=== PATIENT | male | born 1945 | race Caucasian/White ===

== ENCOUNTER 2020-07-24 23:42 | Inpatient (IN) | payer OTHER, MEDICARE, SELFPAY ==
[2020-07-24 23:46] VITALS: BP 104/49; PULSE 110; RESP 22; TEMP 40; O2SAT 93; BMI 29.9
[2020-07-25] VITALS (11 sets, daily range): BP systolic 96–143; BP diastolic 47–75; PULSE 92–110; RESP 12–20; TEMP 36.4–39.4; O2SAT 89–98; BMI 30.4
--- NOTE | 2020-07-25 | XR_ITS ---
EXAMINATION: XR CHEST CLINICAL INFORMATION: Question pneumonia COMPARISON: None TECHNIQUE: Frontal view of the chest was obtained. FINDINGS: There are no films to compare. Low lung volumes on the right. Opacity in the right upper lung may be chronic but an infiltrate or loculated effusion cannot be excluded. The left lung is grossly clear. There is no obvious failure here. XR/XR chest 1V IMPRESSION: No films to compare. Low lung volume on the right may be chronic. Opacity in the right upper lung may be chronic but may represent an infiltrate and/or loculated fluid. Also possible old rib injury here or surgical change. Consider CT to fully characterize
--- NOTE | 2020-07-25 00:15 | ED_ITS ---
HPI - Fever General Chief Complaint: Fever Stated Complaint: fever/sob Time Seen by Provider: 07/25/20 00:14 History of Present Illness HPI Narrative: Patient from the halfway with a chief complaint of coughing upper respiratory symptoms along with a high fever 104. FDC r eported patient has a right upper lobe infiltrate. Patient unable to give detailed history. MD elicited complaint: fever Related Data Home Medications Medication Instructions Recorded Confirmed Advair Diskus 50 mcg INHALATION BID 07/25/20 07/25/20 Depakote Sprinkles 125 mg PO BID 07/25/20 07/25/20 Allergies Allergy/AdvReac Type Severity Reaction Status Date / Time No Known Allergies Allergy Verified 07/25/20 00:31 Review of Systems Review of Systems: Unable to obtain review of systems secondary to patient's condition [facility] Past Medical History Source: old records reviewed Medical History Alzheimer disease Aspiration pneumonia COPD (chronic obstructive pulmonary disease) Depression Diabetes 1.5, managed as type 2 Hyperlipidemia Hypothyroid Macular degeneration Neoplasm Obstructive apnea Pneumonitis Prostate CA PTSD (post-traumatic stress disorder) Social History Social History Advance Directives: No Advance Directives Information Provided: No Physical Exam Vital Signs: Vital Signs: Last Vital Signs Temp 103 F H 07/25/20 01:03 Pulse 110 H 07/25/20 01:03 Resp 12 07/25/20 01:03 BP 124/49 L 07/25/20 01:03 Pulse Ox 94 07/25/20 01:03 Body Mass Index 29.9 Appearance: Alert. . No acute distress. Eyes: Pupils equal, round and reactive to light. ENT: Pharynx normal. Neck: Normal inspection. Neck supple. No lymph nodes noted. No crepitus CVS: Normal heart rate and rhythm. Pulses normal. Normal S1 and S2 Respiratory: No respiratory distress. Breath sounds normal. No Wheezing. No rales Abdomen: Soft and nontender. No rigidity. No distention. good BS x4 Skin: Skin warm and dry. Normal skin color. Normal skin turgor. Extremities: No lower extremity edema. Neurovascular intact to all extremities. No Lacerations. No Rash Neuro: Oriented X 3. No motor deficit. No sensory deficit. Moving all extermities. No slurred speech MDM - Fever MDM Narrative Medical decision making narrative: Patient positive coughing positive fever up to 104. Chest x-ray no definitive infiltrate. Coronavirus test was negative. Cultures obtained antibiotic will be started. Currently in guarded condition awaiting admission. patient's lactate is less than 2. No evidence for severe sepsis. Given IV fluid in the emergency department. CT scan of the chest positive for right lower lobe infiltrate. Antibiotics already started. Her coronavirus test was negative. Patient to be admitted.. Lab Data Result diagrams: 07/25/20 00:20 07/25/20 00:20 Labs: Lab Results 07/25/20 07/25/20 07/25/20 Range/Units 00:19 00: 00:20 WBC 15.8 H (4.8-10.8) X10*3/uL RBC 4.70 (4.60-5.80) X10*6/uL Hgb 14.2 (14.0-18.0) g/dl Hct 43.3 (42-52) % MCV 92.1 (80-98) fL MCH 30.2 (27.0-33.0) pg MCHC 32.8 (31.0-36.0) g/dl RDW 12.2 (11.0-16.0) % Plt Count 212 (160-400) X10*3/uL MPV 10.6 (9.4-12.4) fL Immature Gran % (Auto) 0.4 (0.0-0.4) % Neut % (Auto) 85.4 H (45-73) % Lymph % (Auto) 5.1 L (20-40) % [place] % (Auto) 8.8 (2-11) % Eos % (Auto) 0.1 (0-4) % Baso % (Auto) 0.2 (0-2) % Lymph # (Auto) 0.8 L (1.2-4.9) X10*3/uL [place] # (Auto) 1.4 H (0.1-1.2) X10*3/uL Eos # (Auto) 0.0 (0.0-0.4) X10*3/uL Baso # (Auto) 0.0 (0.0-0.2) X10*3/uL Abs Immat Gran (auto) 0.06 H (0.00-0.03) X10*3/uL Absolute Neuts (auto) 13.5 H (2.0-8.3) X10*3/uL Absolute Nucleated RBC 0.000 (0.0-0.012) X10*3/uL Nucleated RBC % (auto) 0.0 (0.0-0.2) /100WBC PT (10.8-13.0) SEC INR (0.9-1.1) APTT (24.1-38.0) SEC Sodium (135-145) mmol/L Potassium (3.3-5.1) mmol/l Chloride (96-108) mmol/L Carbon Dioxide (22-29) mmol/L Anion Gap (12-20) BUN (9-16) mg/dL Creatinine (0.5-1.4) mg/dL Estim Creat Clear Calc Estimated GFR Random Glucose (60-115) mg/dL Lactic Acid 1.3 (0.5-2.0) mmol/L Calcium (8.4-10.2) mg/dL Total Bilirubin (0.0-1.0) mg/dL Coronavirus (PCR) NEGATIVE (Negative) Influenza Type A (PCR) NEGATIVE (Negative) Influenza Type B (PCR) NEGATIVE (Negative) RSV RNA Qual (PCR) NEGATIVE (Negative) 07/25/20 07/25/20 Range/Units 00:20 00:20 WBC (4.8-10.8) X10*3/uL RBC (4.60-5.80) X10*6/uL Hgb (14.0-18.0) g/dl Hct (42-52) % MCV (80-98) fL MCH (27.0-33.0) pg MCHC (31.0-36.0) g/dl RDW (11.0-16.0) % Plt Count (160-400) X10*3/uL MPV (9.4-12.4) fL Immature Gran % (Auto) (0.0-0.4) % Neut % (Auto) (45-73) % Lymph % (Auto) (20-40) % [place] % (Auto) (2-11) % Eos % (Auto) (0-4) % Baso % (Auto) (0-2) % Lymph # (Auto) (1.2-4.9) X10*3/uL [place] # (Auto) (0.1-1.2) X10*3/uL Eos # (Auto) (0.0-0.4) X10*3/uL Baso # (Auto) (0.0-0.2) X10*3/uL Abs Immat Gran (auto) (0.00-0.03) X10*3/uL Absolute Neuts (auto) (2.0-8.3) X10*3/uL Absolute Nucleated RBC (0.0-0.012) X10*3/uL Nucleated RBC % (auto) (0.0-0.2) /100WBC PT 14.7 H (10.8-13.0) SEC INR 1.2 H (0.9-1.1) APTT 39.9 H (24.1-38.0) SEC Sodium 142 (135-145) mmol/L Potassium 4.1 (3.3-5.1) mmol/l Chloride 103 (96-108) mmol/L Carbon Dioxide 27 (22-29) mmol/L Anion Gap 16 (12-20) BUN 13 (9-16) mg/dL Creatinine 1.07 (0.5-1.4) mg/dL Estim Creat Clear Calc 66.8 Estimated GFR > 60 Random Glucose 122 H (60-115) mg/dL Lactic Acid (0.5-2.0) mmol/L Calcium 8.6 (8.4-10.2) mg/dL Total Bilirubin 0.9 (0.0-1.0) mg/dL Coronavirus (PCR) (Negative) Influenza Type A (PCR) (Negative) Influenza Type B (PCR) (Negative) RSV RNA Qual (PCR) (Negative) Discharge Plan Discharge Clinical Impression: Pneumonia Patient Disposition: Home, Self-Care Prescriptions: No Action Advair Diskus 50 mcg inhalation BID RF: 0 Depakote Sprinkles 125 mg PO BID RF: 0
[2020-07-25 00:31] LABS: Basophils Percent Auto 0.2 % (0-2); Eosinophils Percent Auto 0.1 % (0-4); Hematocrit 43.3 % (42-52); Hemoglobin 14.2 g/dl (14.0-18.0); Imm Gran Abs Auto 0.06 X10*3/uL (0.00-0.03); Imm Gran Pct Auto 0.4 % (0.0-0.4); Lymphocytes Absolute Auto 0.8 X10*3/uL (1.2-4.9); Lymphocytes Percent Auto 5.1 % (20-40); MANUAL DIFF FLAG NO; Mean Corpuscular HGB Conc 32.8 g/dl (31.0-36.0); Mean Corpuscular Hemoglobin 30.2 pg (27.0-33.0); Mean Corpuscular Volume 92.1 fL (80-98); Mean Platelet Volume 10.6 fL (9.4-12.4); Monocytes Absolute Auto 1.4 X10*3/uL (0.1-1.2); Monocytes Percent Auto 8.8 % (2-11); Neutrophils Absolute Auto 13.5 X10*3/uL (2.0-8.3); Neutrophils Percent Auto 85.4 % (45-73); Platelet Count 212 X10*3/uL (160-400); Red Cell Distribution Width 12.2 % (11.0-16.0); White Blood Count 15.8 X10*3/uL (4.8-10.8)
[2020-07-25 00:47] LABS: Lactic Acid 1.3 mmol/L (0.5-2.0)
[2020-07-25 00:48] LABS: INTERNATIONAL NORM RATIO 1.2 (0.9-1.1); Prothrombin Time 14.7 SEC (10.8-13.0)
[2020-07-25 00:50] LABS: Anion Gap 16 (12-20); Bilirubin Total 0.9 mg/dL (0.0-1.0); Blood Urea Nitrogen 13 mg/dL (9-16); Calcium 8.6 mg/dL (8.4-10.2); Carbon Dioxide 27 mmol/L (22-29); Chloride 103 mmol/L (96-108); Creatinine Clr Calc Pharmacy 66.8; Estimated Glomerular Filt Rate > 60; Glucose Random 122 mg/dL (60-115); Partial Thromboplastin Time 39.9 SEC (24.1-38.0); Potassium 4.1 mmol/l (3.3-5.1); Sodium 142 mmol/L (135-145)
[2020-07-25] MEDS: cefEPime HCl 1 GM in 0.9 % Sodium Chloride 50 ML IV (00:51)
--- NOTE | 2020-07-25 01:02 | CT_ITS ---
EXAMINATION: CT CHEST WITHOUT CONTRAST CLINICAL INFORMATION: Question Covid COMPARISON: Chest x-ray 07/25/2020 TECHNIQUE: Multidetector volumetric CT imaging of the chest was done. Axial MIP volume rendering provided. Sagittal and coronal reformatted images were obtained. This CT examination was performed using dose optimization techniques as appropriate, variously including the following: *Automated exposure control *Adjustment of mA and/or kV according to patient size (this includes techniques or standardized protocols for targeted exams where dose is matched to indication/reason for exam; i.e. extremities or head) *Use of iterative reconstruction technique DLP: 583 mGy-cm FINDINGS: LUNGS: Suture line is present in the right hilar region, and there is volume loss in the right hemithorax with an overall appearance suggesting sequelae of prior right upper lobectomy. There is prominent soft tissue attenuation in the region of the right hilum which is not fully assessed in the absence of intravenous contrast. Patchy regions of consolidation are present towards the posterior basilar right lower lobe. No left lung consolidation. MEDIASTINUM: The visualized thyroid gland is unremarkable. Limited assessment for adenopathy in the right hilar region in the absence of intravenous contrast. Cardiac size is within normal limits; no pericardial effusion. There is mild scattered calcification along the aorta. PLEURA: There is no pleural effusion. No pleural mass or thickening. AXILLA: No lymphadenopathy. UPPER ABDOMEN: Unremarkable. OSSEOUS STRUCTURES: There are chronic appearing deformities of the right ribs, suspected to be postsurgical in nature, and there is also some heterogeneous sclerosis along the upper ribs which could reflect sequelae of prior radiation osteonecrosis. Degenerative changes are noted in the spine. CT/CT chest wo con IMPRESSION: 1. Postoperative changes of the right lung, suspected to be from prior right upper lobectomy. Masslike density in the right hilar region is incompletely assessed in the absence of intravenous contrast and lack of prior imaging; this could reflect posttreatment changes/scarring and vasculature, though the possibility of neoplasm cannot be excluded. Correlation with any available prior CT would be helpful. 2. Patchy regions of consolidation towards the basilar right lower lobe, most suspicious for pneumonia. Follow-up imaging after treatment/resolution of symptoms would be helpful to assess for clearance.
[2020-07-25 01:09] LABS: Influenza A PCR NEGATIVE (Negative); Influenza B PCR NEGATIVE (Negative); Resp Syncy Virus RNA Qual PCR NEGATIVE (Negative); SARS COV2 PCR INHOUSE NEGATIVE (Negative)
[2020-07-25] MEDS: Ketorolac Tromethamine 15 MG/ML VIAL IV (01:38)
--- NOTE | 2020-07-25 03:45 | PC.NURSE ---
pt resting comfortably, pt sleeps on and off. pt likes to fiddle with sat prob on his hand. and pt removes his nc and sat drop to 89% on room air. with 2l nc sat 94-95%
--- NOTE | 2020-07-25 04:41 | PC.NURSE ---
pt repositioned and cleaned for incont soft brown stool. pt has nonprod cough and upper chest congestion that is loose. hob elevated. needs at bedside. pt hydrated with gingerale.
--- NOTE | 2020-07-25 05:16 | P.HPHOSP_ITS ---
History of Present Illness Date of Service: 07/25/20 Chief Complaint: URI / Fever 75 y/o male who presented from [facility] due to URI symptoms and fever. Patient has an extensive PMHX including Alzheimer disease for what is unable to provide with any significant hx. Per [facility] attending, patient was noted to have her symptoms today including cough and on and off fever. On presentation to the ED patient was noted to be tachycardic, tachypneic, episodes of 104-103 fever, BP stable, Oxygen in the 80's on room air which improved after placed on nasal cannula. Imaging obtained inclusing CT chest shows evidence of right upper lobectomy, hilar mass concerning for maligancy and evidence of RLL pneumonia. Covid test negative. Decision for admission given. Patient seen and examined at the bedside, laying down in bed in no acute distress. ROS unable to be obtained given severe dementia. Physical exam unremarkable. PMHX: Alzheimer disease Aspiration pneumonia COPD (chronic obstructive pulmonary disease) Depression Diabetes 1.5, managed as type 2 Hyperlipidemia Hypothyroid Macular degeneration Neoplasm Obstructive apnea Pneumonitis Prostate CA PTSD (post-traumatic stress disorder) PSx: RUL lobectomy Toxic habits: No hx of alcohol abuse, smoking or IVDA Review of Systems Review of Systems: Yes Other (unable to be obtained ) [facility] Medical History Alzheimer disease Aspiration pneumonia COPD (chronic obstructive pulmonary disease) Depression Diabetes 1.5, managed as type 2 Hyperlipidemia Hypothyroid Macular degeneration Neoplasm Obstructive apnea Pneumonitis Prostate CA PTSD (post-traumatic stress disorder) Functional capacity: independent ambulation Social History Alcohol intake: never Smoking Status: Never smoker Use of substances other than those prescribed or required for medical reasons: No Advance Directives: No Advance Directives Information Provided: No Meds Allergies Allergy/AdvReac Type Severity Reaction Status Date / Time No Known Allergies Allergy Verified 07/25/20 00:31 Home Medications Medication Instructions Recorded Confirmed Type Advair Diskus 50 mcg INHALATION BID 07/25/20 07/25/20 History Depakote Sprinkles 125 mg PO BID 07/25/20 07/25/20 History Dulcolax (bisacodyl) 10 mg NH 07/25/20 History Fleet Enema 7 - 19 enema 07/25/20 History Milk of Magnesia 30 ml PO 07/25/20 History Miralax 17 PRN 07/25/20 History Namenda 10 mg PO BID 07/25/20 07/25/20 History Remeron 15 mg PO BEDTIME 07/25/20 07/25/20 History acetaminophen 650 mg PO Q4H PRN 07/25/20 07/25/20 History gabapentin 600 tab PO 07/25/20 History latanoprost drp OPHTHALMIC (EYE) BEDTIME 07/25/20 History levalbuterol tartrate 1 puff PO Q4H 07/25/20 07/25/20 History levothyroxine 50 mcg PO BEDTIME 07/25/20 07/25/20 History lorazepam 0.5 mg PO BID 07/25/20 07/25/20 History melatonin 3 mg PO BEDTIME 07/25/20 07/25/20 History omeprazole 20 mg PO 07/25/20 History polyethylene glycol 3350 17 PO DAILY 07/25/20 History trazodone 50 mg PO AC 07/25/20 07/25/20 History Physical Exam Vital Signs and Narrative: Vital Signs: Last Vital Signs Temp 99.9 F 07/25/20 04:38 Pulse 92 07/25/20 04:38 Resp 18 07/25/20 04:38 BP 110/52 L 07/25/20 04:38 Pulse Ox 98 07/25/20 04:38 Body Mass Index 29.9 Const: General: cooperative, comfortable and no acute distress HENMT: Head: Yes normal to inspection Eyes: General: appearance normal, both eyes and all related structures Neck: Yes normal visual inspection Chest: Chest palpation & inspection: normal inspection of the chest Resp: Effort & Inspection: normal respiratory effort Cardio: Jugular venous distension: no JVD Rate: regular rate Rhythm: regular rhythm Heart sounds: S1 normal heart sound present and S2 normal heart sound present GI: Inspection: Yes normal to inspection Skin: General skin exam: no rashes or lesions noted Neuro: General: other (not oriented x 3) Results Labs CBC and Chem 7: 07/25/20 00:20 07/25/20 00:20 Labs: Laboratory Results - last 24 hr 07/25/20 07/25/20 07/25/20 00:19 00:20 00:20 MCV 92.1 MCH 30.2 MCHC 32.8 RDW 12.2 Plt Count 212 MPV 10.6 Immature Gran % (Auto) 0.4 Neut % (Auto) 85.4 H Lymph % (Auto) 5.1 L [place] % (Auto) 8.8 Eos % (Auto) 0.1 Baso % (Auto) 0.2 Lymph # (Auto) 0.8 L [place] # (Auto) 1.4 H Eos # (Auto) 0.0 Baso # (Auto) 0.0 Abs Immat Gran (auto) 0.06 H Absolute Neuts (auto) 13.5 H Absolute Nucleated RBC 0.000 Nucleated RBC % (auto) 0.0 PT INR APTT Anion Gap Estim Creat Clear Calc Estimated GFR Random Glucose Lactic Acid 1.3 Calcium Total Bilirubin Coronavirus (PCR) NEGATIVE Influenza Type A (PCR) NEGATIVE Influenza Type B (PCR) NEGATIVE RSV RNA Qual (PCR) NEGATIVE 07/25/20 07/25/20 00:20 00:20 MCV MCH MCHC RDW Plt Count MPV Immature Gran % (Auto) Neut % (Auto) Lymph % (Auto) [place] % (Auto) Eos % (Auto) Baso % (Auto) Lymph # (Auto) [place] # (Auto) Eos # (Auto) Baso # (Auto) Abs Immat Gran (auto) Absolute Neuts (auto) Absolute Nucleated RBC Nucleated RBC % (auto) PT 14.7 H INR 1.2 H APTT 39.9 H Anion Gap 16 Estim Creat Clear Calc 66.8 Estimated GFR > 60 Random Glucose 122 H Lactic Acid Calcium 8.6 Total Bilirubin 0.9 Coronavirus (PCR) Influenza Type A (PCR) Influenza Type B (PCR) RSV RNA Qual (PCR) Imaging Radiologist's Impressions: Impressions Chest X-Ray 07/25/20 00:00 IMPRESSION: No films to compare. Low lung volume on the right may be chronic. Opacity in the right upper lung may be chronic but may represent an infiltrate and/or loculated fluid. Also possible old rib injury here or surgical change. Consider CT to fully characterize Chest CT 07/25/20 01:02 IMPRESSION: 1. Postoperative changes of the right lung, suspected to be from prior right upper lobectomy. Masslike density in the right hilar region is incompletely assessed in the absence of intravenous contrast and lack of prior imaging; this could reflect posttreatment changes/scarring and vasculature, though the possibility of neoplasm cannot be excluded. Correlation with any available prior CT would be helpful. 2. Patchy regions of consolidation towards the basilar right lower lobe, most suspicious for pneumonia. Follow-up imaging after treatment/resolution of symptoms would be helpful to assess for clearance. Assessment and Plan (1) Sepsis: Status: Acute Keep MAP > 65 mmhg continue with zosyn for gram neg coverage Follow up Bcx collected in the ED s/p 2 liter bolus in the ED Encourage PO hydration Infectious disease consult in the am Hematology oncology consult in the am regarding possible Lung cancer recurrence (2) Pneumonia: Status: Acute as above (3) Sepsis with acute hypoxic respiratory failure: Status: Acute continue with Oxygen therapy and titrate off as tolerated (4) Alzheimer disease: Status: Acute continue with home meds as ordered (5) Hypothyroid: Status: Acute continue wth levothyroxine home dose (6) Depression: Status: Acute continue with home meds as ordered (7) COPD (chronic obstructive pulmonary disease): Status: Acute continue with home inhalers as ordered
--- NOTE | 2020-07-25 06:30 | PC.NURSE ---
pt has loose congested productive cough. thick yellow
--- NOTE | 2020-07-25 07:37 | PC.NURSE ---
report taken from marija robins pt to be admitted this morning, pt upon first contact covered in large amount loose stool, cleaned and linens changed, pt restless and lightly combative w linen change, redirectable. in no apparent distress, breathing equal and unlabored on 2l nc
[2020-07-25] MEDS: LORazepam 2 MG/ML VIAL 0.5 MG IVPUSH ×2 (07:45→14:54)
--- NOTE | 2020-07-25 09:05 | PC.NURSE ---
pt updated on plan of care.
[2020-07-25] MEDS: Divalproex Sodium Sprinkles 125 MG CAP.DR.SPR PO ×2 (09:13→21:38)
[2020-07-25] MEDS: Memantine HCl 10 MG TABLET PO ×2 (09:13→21:38)
[2020-07-25] MEDS: Doxycycline Hyclate 100 MG in 0.9 % Sodium Chloride 250 ML 166.67 MG IV ×2 (09:13→21:35)
--- NOTE | 2020-07-25 09:59 | PC.NURSE ---
pt cleaned of large amount loose brown stool, cooperative w change of linens.
--- NOTE | 2020-07-25 10:03 | PC.NURSE ---
report given to danis robins c
--- NOTE | 2020-07-25 10:13 | PC.NURSE ---
transporter called for transport to [facility]
[2020-07-25] MEDS: 0.9 % Sodium Chloride Flush 3 ML SYRINGE IVFLUSH ×3 (10:52→21:35)
[2020-07-25] MEDS: Piperacillin Sodium/Tazobactam 3.375 GM in 0.9 % Sodium Chloride 50 ML IV ×2 (10:55→18:04)
[2020-07-25] MEDS: Heparin Sodium,Porcine 5,000 UNIT/ML VIAL 5000 UNIT SUBCUT ×2 (10:55→18:04)
[2020-07-25 11:20] LABS: Basophils Percent Auto 0.2 % (0-2); Eosinophils Percent Auto 0.1 % (0-4); Hematocrit 39.4 % (42-52); Hemoglobin 12.7 g/dl (14.0-18.0); Imm Gran Abs Auto 0.09 X10*3/uL (0.00-0.03); Imm Gran Pct Auto 0.5 % (0.0-0.4); Lymphocytes Absolute Auto 0.8 X10*3/uL (1.2-4.9); Lymphocytes Percent Auto 4.8 % (20-40); MANUAL DIFF FLAG SCAN; Mean Corpuscular HGB Conc 32.2 g/dl (31.0-36.0); Mean Corpuscular Volume 92.9 fL (80-98); Mean Platelet Volume 10.1 fL (9.4-12.4); Monocytes Absolute Auto 1.7 X10*3/uL (0.1-1.2); Monocytes Percent Auto 9.6 % (2-11); Neutrophils Absolute Auto 14.7 X10*3/uL (2.0-8.3); Neutrophils Percent Auto 84.8 % (45-73); Platelet Count 171 X10*3/uL (160-400); Red Blood Count 4.24 X10*6/uL (4.60-5.80); Red Cell Distribution Width 12.4 % (11.0-16.0); SCAN SMEAR FLAG 1; White Blood Count 17.4 X10*3/uL (4.8-10.8)
[2020-07-25 11:51] LABS: Anion Gap 12 (12-20); Blood Urea Nitrogen 15 mg/dL (9-16); Calcium 7.9 mg/dL (8.4-10.2); Carbon Dioxide 28 mmol/L (22-29); Chloride 107 mmol/L (96-108); Creatinine Clr Calc Pharmacy 74.4; Estimated Glomerular Filt Rate > 60; Glucose Random 95 mg/dL (60-115); Potassium 3.7 mmol/l (3.3-5.1); Sodium 143 mmol/L (135-145)
[2020-07-25 12:01] LABS: SLIDE REVIEW VERIFIED
--- NOTE | 2020-07-25 17:40 | PC.NURSE ---
TELEPACK ORDER D/C'ED PER .
[2020-07-25] MEDS: Levothyroxine Sodium 50 MCG TABLET PO (21:38)
[2020-07-25] MEDS: traZODone HCL 50 MG TABLET PO (21:38)
[2020-07-25] MEDS: Mirtazapine 15 MG TABLET PO (21:38)
[2020-07-26] VITALS (7 sets, daily range): BP systolic 116–142; BP diastolic 48–69; PULSE 98–114; RESP 18–20; TEMP 36.6–39; O2SAT 90–98
[2020-07-26] MEDS: Piperacillin Sodium/Tazobactam 3.375 GM in 0.9 % Sodium Chloride 50 ML IV ×4 (00:09→17:51)
[2020-07-26] MEDS: Heparin Sodium,Porcine 5,000 UNIT/ML VIAL 5000 UNIT SUBCUT ×3 (03:03→17:51)
[2020-07-26 07:40] LABS: Hematocrit 40.9 % (42-52); Hemoglobin 13.4 g/dl (14.0-18.0); Mean Corpuscular HGB Conc 32.8 g/dl (31.0-36.0); Mean Corpuscular Hemoglobin 30.1 pg (27.0-33.0); Mean Corpuscular Volume 91.9 fL (80-98); Mean Platelet Volume 10.8 fL (9.4-12.4); Platelet Count 198 X10*3/uL (160-400); Red Blood Count 4.45 X10*6/uL (4.60-5.80); Red Cell Distribution Width 12.2 % (11.0-16.0); White Blood Count 13.5 X10*3/uL (4.8-10.8)
[2020-07-26 08:08] LABS: Anion Gap 15 (12-20); Blood Urea Nitrogen 13 mg/dL (9-16); Calcium 8.1 mg/dL (8.4-10.2); Carbon Dioxide 23 mmol/L (22-29); Chloride 106 mmol/L (96-108); Creatinine Clr Calc Pharmacy 73.5; Estimated Glomerular Filt Rate > 60; Glucose Random 86 mg/dL (60-115); Potassium 4.1 mmol/l (3.3-5.1); Sodium 140 mmol/L (135-145)
[2020-07-26] MEDS: Memantine HCl 10 MG TABLET PO ×2 (08:19→21:33)
[2020-07-26] MEDS: 0.9 % Sodium Chloride Flush 3 ML SYRINGE IVFLUSH ×2 (08:20→17:52)
[2020-07-26] MEDS: Divalproex Sodium Sprinkles 125 MG CAP.DR.SPR PO ×2 (08:20→21:33)
[2020-07-26] MEDS: Doxycycline Hyclate 100 MG in 0.9 % Sodium Chloride 250 ML 166.67 MG IV ×2 (08:20→21:24)
--- NOTE | 2020-07-26 10:04 | HO.PM.IMPN ---
Subjective Subjective Date of Service: 07/26/20 Interval History: Seen in f/u for hospice due to PNA. Seems better and seems to be coughing during meals and likely risk for aspiration Review of Systems Review of Systems: Yes Unobtainable due to mental status Physical Exam Vital Signs: Vital Signs: Last Vital Signs Temp 100.5 F H 07/26/20 06:52 Pulse 114 H 07/26/20 06:52 Resp 18 07/26/20 06:52 BP 133/63 07/26/20 06:52 Pulse Ox 92 07/26/20 06:52 Body Mass Index 30.4 General: Alert, not oriented no acute distress Resp: normal resp effort, rhonchi CVS: S1,S2,RRR GI: +BS, NT, no distention Skin: No rash Neuro: motor grossly intact Psych: flat affect Objective Data Current Medications Generic Name Dose Route Start Last Admin Trade Name Freq PRN Reason Stop Dose Admin Divalproex Sodium 125 mg 07/25/20 09:00 07/26/20 08:20 Divalproex Sodium Sprinkles 125 Mg PO 125 mg BID NIDHI Administration Heparin Sodium (Porcine) 5,000 unit 07/25/20 10:22 07/26/20 03:03 Heparin Sodium,Porcine 5,000 Unit/Ml Vial SUBCUT 5,000 unit Q8H NIDHI Administration Doxycycline Hyclate 100 mg/ 250 mls @ 166.67 mls/hr 07/25/20 08:00 07/26/20 08:20 Sodium Chloride IV 166.67 mls/hr Q12H NIDHI Administration Piperacillin Sod/Tazobactam 50 mls @ 100 mls/hr 07/25/20 11:00 07/26/20 08:21 Sod 3.375 gm/ Sodium Chloride IV Infused Q6H NIDHI Infusion Levothyroxine Sodium 50 mcg 07/25/20 21:00 07/25/20 21:38 Levothyroxine Sodium 50 Mcg Tablet PO 50 mcg BEDTIME NIDHI Administration Lorazepam 0.5 mg 07/25/20 14:36 07/25/20 14:54 Lorazepam 2 Mg/Ml Vial IVPUSH 0.5 mg Q6H PRN Administration anxiety/restlessness Memantine 10 mg 07/25/20 09:00 07/26/20 08:19 Memantine Hcl 10 Mg Tablet PO 10 mg BID NIDHI Administration Mirtazapine 15 mg 07/25/20 21:00 07/25/20 21:38 Mirtazapine 15 Mg Tablet PO 15 mg BEDTIME NIDHI Administration Sodium Chloride 3 ml 07/25/20 10:22 07/26/20 08:20 0.9 % Sodium Chloride Flush 3 Ml Syringe IVFLUSH 3 ml QSHIFT NIDHI Administration Trazodone HCl 50 mg 07/25/20 06:49 07/25/20 21:38 Trazodone Hcl 50 Mg Tablet PO 50 mg BEDTIME NIDHI Administration Labs CBC & Chem 7: 07/26/20 06:26 07/26/20 06:26 Microbiology Microbiology Results: Microbiology 07/25/20 00:20 Blood - Venous Blood Culture - Preliminary No growth after 24 hours. 07/25/20 00:21 Blood - Venous Blood Culture - Preliminary No growth after 24 hours. Assessment and Plan (1) Sepsis: Status: Acute (2) Pneumonia: Status: Acute (3) Sepsis with acute hypoxic respiratory failure: Status: Acute (4) Alzheimer disease: Status: Acute (5) Hypothyroid: Status: Acute (6) Depression: Status: Acute (7) COPD (chronic obstructive pulmonary disease): Status: Acute Assessment and Plan: 75/m with advanced dementia, history of lung cancer here with sepsis due to Pneumonia 1. Sepsis due to PNA--concern for aspiration -continue Zosyn, ultimately change to PO Augmentin -speech eval -monitor blood culture -O2 as needed -[place] 2. ? Recurrent lung CA--Oncology to comment on this 3. Hypothyroidims--Levothyroxine 4. Dementia--Namenda
--- NOTE | 2020-07-26 12:22 | MHC.CM.PN ---
SAGRARIO spoke to pts /HCP, Georgina [phone]) who reports the pt is no longer a resident of [facility]. She reports she removed him from that facility last August and he has been at [facility] since then. she reports she likes the care the pt receives at [facility] however she has concerns that they will not be able to provide the LOC he may need upon DC. She reports there is concern around aspiration pneumonia and the pt may need 1:1 feeding when he returns, she is unsure the SNF would be able to accommodate this. Georgina reports she would like to discuss all of these things prior to pts discharge to ensure he is able to receive all the care he will need at [facility] or find a new facility if they are unable to provide the care. SAGRARIO explained pts Medicare rights however Georgina reports she does not need a copy as she is a nurse and is familiar with them. current DC plan is for pt to return to [facility] assuming they are able to provide all the care needed by the pt. pt will need BLS transport
[2020-07-26] MEDS: Acetaminophen 325 MG TABLET 650 MG PO (15:07)
[2020-07-26] MEDS: Mirtazapine 15 MG TABLET PO (21:33)
[2020-07-26] MEDS: traZODone HCL 50 MG TABLET PO (21:33)
[2020-07-26] MEDS: Levothyroxine Sodium 50 MCG TABLET PO (21:33)
[2020-07-26 21:46] LABS: Glucose, Whole Blood 107 mg/dL (60-115)
[2020-07-27] VITALS (8 sets, daily range): BP systolic 104–116; BP diastolic 47–78; PULSE 88–100; RESP 18–20; TEMP 36.6–38.8; O2SAT 90–96
[2020-07-27] MEDS: Piperacillin Sodium/Tazobactam 3.375 GM in 0.9 % Sodium Chloride 50 ML IV ×5 (00:19→22:38)
[2020-07-27] MEDS: 0.9 % Sodium Chloride Flush 3 ML SYRINGE IVFLUSH ×3 (00:20→15:26)
[2020-07-27] MEDS: Heparin Sodium,Porcine 5,000 UNIT/ML VIAL 5000 UNIT SUBCUT ×3 (00:20→17:23)
[2020-07-27] MEDS: Acetaminophen 325 MG TABLET 650 MG PO ×2 (06:13→15:32)
[2020-07-27] MEDS: Memantine HCl 10 MG TABLET PO ×2 (08:11→21:03)
[2020-07-27] MEDS: Divalproex Sodium Sprinkles 125 MG CAP.DR.SPR PO ×2 (08:11→21:03)
[2020-07-27] MEDS: Doxycycline Hyclate 100 MG in 0.9 % Sodium Chloride 250 ML 166.67 MG IV ×2 (08:11→19:15)
--- NOTE | 2020-07-27 10:08 | HO.PM.IMPN ---
Subjective Subjective Date of Service: 07/27/20 Interval History: Seen in f/u for sepsis due to PNA. Continues to have intermittent fever, 102 this moning Physical Exam Vital Signs: Vital Signs: Last Vital Signs Temp 99.2 F 07/27/20 08:00 Pulse 88 07/27/20 08:00 Resp 20 07/27/20 08:00 BP 104/47 L 07/27/20 08:00 Pulse Ox 93 07/27/20 08:00 Body Mass Index 30.4 General: confused at baseline Resp: some rhonchi CVS: S1,S2,RRR GI: +BS, NT, no distention Skin: No rash Neuro: motor grossly intact Psych: appropriate affect Objective Data Current Medications Generic Name Dose Route Start Last Admin Trade Name Freq PRN Reason Stop Dose Admin Acetaminophen 650 mg 07/26/20 14:57 07/27/20 06:13 Acetaminophen 325 Mg Tablet PO 650 mg Q6H PRN Administration Pain, Mild (Pain Scale 1-3) Divalproex Sodium 125 mg 07/25/20 09:00 07/27/20 08:11 Divalproex Sodium Sprinkles 125 Mg Cap.DrSilkeSpr PO 125 mg BID NIDHI Administration Guaifenesin 5 ml 07/26/20 16:38 Guaifenesin 100 Mg/5 Ml Liquid PO Q6H PRN Cough Heparin Sodium (Porcine) 5,000 unit 07/25/20 10:22 07/27/20 09:59 Heparin Sodium,Porcine 5,000 Unit/Ml Vial SUBCUT 5,000 unit Q8H NIDHI Administration Doxycycline Hyclate 100 mg/ 250 mls @ 166.67 mls/hr 07/25/20 08:00 07/27/20 09:56 Sodium Chloride IV Infused Q12H NIDHI Infusion Piperacillin Sod/Tazobactam 50 mls @ 100 mls/hr 07/25/20 11:00 07/27/20 07:04 Sod 3.375 gm/ Sodium Chloride IV Infused Q6H NIDHI Infusion Levothyroxine Sodium 50 mcg 07/25/20 21:00 07/26/20 21:33 Levothyroxine Sodium 50 Mcg Tablet PO 50 mcg BEDTIME NIDHI Administration Lorazepam 0.5 mg 07/25/20 14:36 07/25/20 14:54 Lorazepam 2 Mg/Ml Vial IVPUSH 0.5 mg Q6H PRN Administration anxiety/restlessness Memantine 10 mg 07/25/20 09:00 07/27/20 08:11 Memantine Hcl 10 Mg Tablet PO 10 mg BID NIDHI Administration Mirtazapine 15 mg 07/25/20 21:00 07/26/20 21:33 Mirtazapine 15 Mg Tablet PO 15 mg BEDTIME NIDHI Administration Sodium Chloride 3 ml 07/25/20 10:22 07/27/20 08:12 0.9 % Sodium Chloride Flush 3 Ml Syringe IVFLUSH 3 ml QSHIFT NIDHI Administration Trazodone HCl 50 mg 07/25/20 06:49 07/26/20 21:33 Trazodone Hcl 50 Mg Tablet PO 50 mg BEDTIME NIDHI Administration Labs CBC & Chem 7: 07/26/20 06:26 07/26/20 06:26 Microbiology Microbiology Results: Microbiology 07/25/20 00:20 Blood - Venous Blood Culture - Preliminary No growth after 48 hours. 07/25/20 00:21 Blood - Venous Blood Culture - Preliminary No growth after 48 hours. Assessment and Plan (1) Sepsis: Status: Acute (2) Pneumonia: Status: Acute (3) Sepsis with acute hypoxic respiratory failure: Status: Acute (4) Alzheimer disease: Status: Acute (5) Hypothyroid: Status: Acute (6) Depression: Status: Acute (7) COPD (chronic obstructive pulmonary disease): Status: Acute Assessment and Plan: 75/m with advanced dementia, history of lung cancer here with sepsis due to Pneumonia 1. Sepsis due to PNA--concern for aspiration. Blood cltures negative after 48 hours -continue Zosyn, ultimately change to PO Augmentin -speech swallow eval on Tuesday -monitor blood culture -O2 as needed -covid negative, flu negative. d/t persistent fever, will check viral panel 2. ? Recurrent lung CA--Oncology to comment on this 3. Hypothyroidims--Levothyroxine 4. Dementia--Namenda
--- NOTE | 2020-07-27 19:49 | PC.NURSE ---
unable to locate air loss bed attachment for this patient bed,TRANSMISSION OPERATOR notified,community relations police lieutenant notified
[2020-07-27] MEDS: traZODone HCL 50 MG TABLET PO (21:02)
[2020-07-27] MEDS: Mirtazapine 15 MG TABLET PO (21:02)
[2020-07-27] MEDS: Levothyroxine Sodium 50 MCG TABLET PO (21:02)
[2020-07-28] VITALS (7 sets, daily range): BP systolic 94–131; BP diastolic 51–61; PULSE 82–90; RESP 16–18; TEMP 36.8–37.6; O2SAT 93–98; BMI 30.4
[2020-07-28] MEDS: 0.9 % Sodium Chloride Flush 3 ML SYRINGE IVFLUSH ×4 (00:42→20:52)
[2020-07-28] MEDS: Heparin Sodium,Porcine 5,000 UNIT/ML VIAL 5000 UNIT SUBCUT ×3 (02:22→18:29)
[2020-07-28] MEDS: Piperacillin Sodium/Tazobactam 3.375 GM in 0.9 % Sodium Chloride 50 ML IV ×4 (04:56→22:31)
[2020-07-28] MEDS: Doxycycline Hyclate 100 MG in 0.9 % Sodium Chloride 250 ML 166.67 MG IV ×2 (09:41→19:51)
[2020-07-28] MEDS: Memantine HCl 10 MG TABLET PO ×2 (09:42→20:51)
[2020-07-28] MEDS: Divalproex Sodium Sprinkles 125 MG CAP.DR.SPR PO ×2 (09:43→20:52)
--- NOTE | 2020-07-28 10:58 | HO.PM.IMPN ---
Subjective Subjective Date of Service: 07/29/20 Interval History: Seen in f/u for sepsis due to PNA. Fever finally resolved. No new changes, Seen by Speech with diet changes Physical Exam Vital Signs: Vital Signs: Last Vital Signs Temp 98.8 F 07/28/20 07:03 Pulse 83 07/28/20 07:03 Resp 18 07/28/20 07:03 BP 108/58 L 07/28/20 07:03 Pulse Ox 98 07/28/20 07:03 Body Mass Index 30.4 General: confused at baseline Resp: some rhonchi CVS: S1,S2,RRR GI: +BS, NT, no distention Skin: No rash Neuro: motor grossly intact Psych: appropriate affect Objective Data Current Medications Generic Name Dose Route Start Last Admin Trade Name Freq PRN Reason Stop Dose Admin Acetaminophen 650 mg 07/26/20 14:57 07/27/20 15:32 Acetaminophen 325 Mg Tablet PO 650 mg Q6H PRN Administration Pain, Mild (Pain Scale 1-3) Divalproex Sodium 125 mg 07/25/20 09:00 07/28/20 09:43 Divalproex Sodium Sprinkles 125 Mg PO 125 mg BID NIDHI Administration Guaifenesin 5 ml 07/26/20 16:38 Guaifenesin 100 Mg/5 Ml Liquid PO Q6H PRN Cough Heparin Sodium (Porcine) 5,000 unit 07/25/20 10:22 07/28/20 09:44 Heparin Sodium,Porcine 5,000 Unit/Ml Vial SUBCUT 5,000 unit Q8H NIDHI Administration Doxycycline Hyclate 100 mg/ 250 mls @ 166.67 mls/hr 07/25/20 08:00 07/28/20 09:41 Sodium Chloride IV 166.67 mls/hr Q12H NIDHI Administration Piperacillin Sod/Tazobactam 50 mls @ 100 mls/hr 07/25/20 11:00 07/28/20 05:34 Sod 3.375 gm/ Sodium Chloride IV Infused Q6H NIDHI Infusion Levothyroxine Sodium 50 mcg 07/25/20 21:00 07/27/20 21:02 Levothyroxine Sodium 50 Mcg Tablet PO 50 mcg BEDTIME NIDHI Administration Lorazepam 0.5 mg 07/25/20 14:36 07/25/20 14:54 Lorazepam 2 Mg/Ml Vial IVPUSH 0.5 mg Q6H PRN Administration anxiety/restlessness Memantine 10 mg 07/25/20 09:00 07/28/20 09:42 Memantine Hcl 10 Mg Tablet PO 10 mg BID NIDHI Administration Mirtazapine 15 mg 07/25/20 21:00 07/27/20 21:02 Mirtazapine 15 Mg Tablet PO 15 mg BEDTIME NIDHI Administration Sodium Chloride 3 ml 07/25/20 10:22 07/28/20 09:42 0.9 % Sodium Chloride Flush 3 Ml Syringe IVFLUSH 3 ml QSHIFT NIDHI Administration Trazodone HCl 50 mg 07/25/20 06:49 07/27/20 21:02 Trazodone Hcl 50 Mg Tablet PO 50 mg BEDTIME NIDHI Administration Labs CBC & Chem 7: 07/28/20 11:46 07/28/20 11:46 Microbiology Microbiology Results: Microbiology 07/25/20 00:20 Blood - Venous Blood Culture - Preliminary No growth after 48 hours. 07/25/20 00:21 Blood - Venous Blood Culture - Preliminary No growth after 48 hours. Assessment and Plan (1) Sepsis: Status: Acute (2) Pneumonia: Status: Acute (3) Sepsis with acute hypoxic respiratory failure: Status: Acute (4) Alzheimer disease: Status: Acute (5) Hypothyroid: Status: Acute (6) Depression: Status: Acute (7) COPD (chronic obstructive pulmonary disease): Status: Acute Assessment and Plan: 75/m with advanced dementia, history of lung cancer here with sepsis due to Pneumonia 1. Sepsis due to PNA--concern for aspiration. Blood cltures negative after 48 hours -continue Zosyn today, ultimately change to PO Augmentin by tomorrow -monitor blood culture -O2 as needed -covid negative, flu negative. d/t persistent fever, will check viral panel -speech: Recommending honey thick liquids and pureed solids with pills crushed in puree. Tray may need to be withheld depending of pts level of alertness. Total assistance feeds with frequent verbal and tactile cues to complete swallow--will make changes, RN aware 2. ? Recurrent lung CA--Oncology to comment on this 3. Hypothyroidims--Levothyroxine 4. Dementia--Namenda Dispo by tomorrow
[2020-07-28 11:56] LABS: Hematocrit 39.3 % (42-52); Hemoglobin 12.5 g/dl (14.0-18.0); Mean Corpuscular HGB Conc 31.8 g/dl (31.0-36.0); Mean Corpuscular Hemoglobin 30.2 pg (27.0-33.0); Mean Corpuscular Volume 94.9 fL (80-98); Mean Platelet Volume 10.3 fL (9.4-12.4); Platelet Count 163 X10*3/uL (160-400); Red Blood Count 4.14 X10*6/uL (4.60-5.80); Red Cell Distribution Width 12.7 % (11.0-16.0); White Blood Count 6.4 X10*3/uL (4.8-10.8)
--- NOTE | 2020-07-28 12:18 | MHC.CM.PN ---
REFERRAL PLACED TO [facility] WHERE PATIENT IS IN FROM. CASE MANAGEMENT CONTINUING TO FOLLOW
[2020-07-28 12:51] LABS: Anion Gap 16 (12-20); Blood Urea Nitrogen 21 mg/dL (9-16); Calcium 8.1 mg/dL (8.4-10.2); Carbon Dioxide 24 mmol/L (22-29); Chloride 109 mmol/L (96-108); Estimated Glomerular Filt Rate > 60; Glucose Random 87 mg/dL (60-115); Potassium 3.6 mmol/l (3.3-5.1); Sodium 145 mmol/L (135-145)
--- NOTE | 2020-07-28 16:22 | W.PM.IDCN ---
History of Present Illness Data of Consult Service Date: 07/28/20 Requesting physician: Zhang Dill Primary Care Provider: Unknown Physician HPI Reason for consult: fever He presents with temperature to 104 as well as fatigue. He has shortness of breath He was started on Zosyn Review of Systems Review of Systems: Yes Unobtainable due to mental status PMFSH Past Medical History Medical History (Updated 08/18/20 @ 09:59 by Jamar Grubbs MD) Alzheimer disease Aspiration pneumonia COPD (chronic obstructive pulmonary disease) Depression Diabetes 1.5, managed as type 2 Hyperlipidemia Hypothyroid Macular degeneration Neoplasm Obstructive apnea Pneumonia Pneumonitis Prostate CA PTSD (post-traumatic stress disorder) Sepsis Functional capacity: independent ambulation Social History Social History Household Members: Other Housing: Custodial Do you presently have visiting nurse or other home services: No Alcohol intake: never Smoking Status: Former smoker Smoked in Last 30 Days: No Use of substances other than those prescribed or required for medical reasons: No Currently Displaying Signs/Symptoms of Drug Intoxication Withdrawal: No Have you been hit, kicked, punched, or otherwise hurt by someone within the past year? If so, by whom?: No Do you feel safe in your current relationship?: No Is there a partner from a previous relationship who is making you feel unsafe now?: No Are you made to feel afraid or neglected: No Advance Directives: No Do you have thoughts of harming others: None Do you have a plan to hurt others: No Plan service: Yes Current occupational status: retired [employer] Allergies Allergy/AdvReac Type Severity Reaction Status Date / Time No Known Allergies Allergy Verified 07/25/20 00:31 Home Medications Medication Instructions Recorded Confirmed Type divalproex [Depakote Sprinkles] 250 mg PO BID 08/04/20 08/04/20 History fluticasone propion-salmeterol 1 inh INHALATION BID 08/04/20 08/04/20 History [Advair Diskus] gabapentin 600 mg PO DAILY 08/04/20 08/04/20 History latanoprost 1 drp OPHTHALMIC (EYE) QPM 08/04/20 08/04/20 History levalbuterol tartrate 1 puff INHALATION Q6H 08/04/20 08/04/20 History levothyroxine 50 mcg PO BEDTIME 08/04/20 08/04/20 History melatonin 3 mg PO BEDTIME PRN 08/04/20 08/04/20 History memantine [Namenda] 10 mg PO BID 08/04/20 08/04/20 History mirtazapine [Remeron] 15 mg PO BEDTIME 08/04/20 08/04/20 History omeprazole 20 mg PO DAILY 08/04/20 08/04/20 History polyethylene glycol 3350 [Miralax] 17 g PO DAILY PRN 08/04/20 08/04/20 History trazodone 50 mg PO BEDTIME PRN 08/04/20 08/04/20 History Physical Exam Vital Signs: Vital Signs: Last Vital Signs Temp 98.5 F 07/28/20 15:17 Pulse 82 07/28/20 15:17 Resp 18 07/28/20 15:17 BP 110/51 L 07/28/20 15:17 Pulse Ox 96 07/28/20 15:17 Body Mass Index 30.4 Const: General: no acute distress HENMT: Head: Yes normal to inspection Throat: Yes posterior oropharynx normal Eyes: General: appearance normal, both eyes and all related structures Resp: Effort & Inspection: normal respiratory effort Cardio: Rate: regular rate Rhythm: regular rhythm GI: Inspection: Yes normal to inspection : General: Yes no CVA tenderness Back/Spine/Pelvis: Back: no CVA tenderness Skin: General skin exam: no rashes or lesions noted Extrem: General: Yes normal to inspection Assessment and Plan (1) Aspiration pneumonia: Status: Acute Would give Augmentin on discharge finish 10 d course (2) Sepsis with acute hypoxic respiratory failure: Status: Acute Results Labs CBC & Chem 7: 07/28/20 11:46 07/28/20 11:46 Labs: Short CBC 07/28/20 Range/Units 11:46 WBC 6.4 (4.8-10.8) X10*3/uL Hgb 12.5 L (14.0-18.0) g/dl Hct 39.3 L (42-52) % Plt Count 163 (160-400) X10*3/uL BMP 07/28/20 11:46 Sodium 145 Potassium 3.6 Chloride 109 H Carbon Dioxide 24 BUN 21 H D Creatinine 0.96 Calcium 8.1 L Microbiology Microbiology Results: Microbiology 07/25/20 00:20 Blood - Venous Blood Culture - Preliminary No growth after 48 hours. 07/25/20 00:21 Blood - Venous Blood Culture - Preliminary No growth after 48 hours.
[2020-07-28] MEDS: traZODone HCL 50 MG TABLET PO (20:51)
[2020-07-28] MEDS: Mirtazapine 15 MG TABLET PO (20:52)
[2020-07-28] MEDS: Levothyroxine Sodium 50 MCG TABLET PO (20:52)
[2020-07-29] MEDS: Heparin Sodium,Porcine 5,000 UNIT/ML VIAL 5000 UNIT SUBCUT ×3 (02:02→17:21)
[2020-07-29 03:15] VITALS: BP 115/64; PULSE 87; RESP 20; TEMP 37.7; O2SAT 100
[2020-07-29] MEDS: Piperacillin Sodium/Tazobactam 3.375 GM in 0.9 % Sodium Chloride 50 ML IV (04:21)
[2020-07-29 07:30] VITALS: BP 111/50; PULSE 87; RESP 17; TEMP 37.3; O2SAT 94
[2020-07-29] MEDS: 0.9 % Sodium Chloride Flush 3 ML SYRINGE IVFLUSH ×3 (07:39→21:23)
[2020-07-29] MEDS: Memantine HCl 10 MG TABLET PO ×2 (07:39→21:22)
[2020-07-29] MEDS: Divalproex Sodium Sprinkles 125 MG CAP.DR.SPR PO ×2 (07:39→21:22)
--- NOTE | 2020-07-29 09:07 | PM.DS ---
DS: Providers Provider Date of admission: 07/25/20 05:15 Date of Service/Date of discharge: 07/30/2020 Primary care physician: Unknown Physician Consults: 07/25/20 10:22 Consult to Infectious Diseases Routine Consulting Provider: Infectious Disease Reason for consultation: sepsis Has provider been notified: No DS: Diagnosis Discharge Diagnosis (1) Sepsis: Status: Acute (2) Pneumonia: Status: Acute (3) Sepsis with acute hypoxic respiratory failure: Status: Acute (4) Alzheimer disease: Status: Acute (5) Hypothyroid: Status: Acute (6) Depression: Status: Acute (7) COPD (chronic obstructive pulmonary disease): Status: Acute DS: Medications Discharge Medications Home Medications: Home Medications Medication Instructions Recorded Confirmed Advair Diskus 50 mcg INHALATION BID 07/25/20 07/25/20 Depakote Sprinkles 125 mg PO BID 07/25/20 07/25/20 Dulcolax (bisacodyl) 10 mg WA 07/25/20 Fleet Enema 7 - 19 enema 07/25/20 Milk of Magnesia 30 ml PO 07/25/20 Miralax 17 PRN 07/25/20 Namenda 10 mg PO BID 07/25/20 07/25/20 Remeron 15 mg PO BEDTIME 07/25/20 07/25/20 acetaminophen 650 mg PO Q4H PRN 07/25/20 07/25/20 gabapentin 600 tab PO 07/25/20 latanoprost drp OPHTHALMIC (EYE) BEDTIME 07/25/20 levalbuterol tartrate 1 puff PO Q4H 07/25/20 07/25/20 levothyroxine 50 mcg PO BEDTIME 07/25/20 07/25/20 lorazepam 0.5 mg PO BID 07/25/20 07/25/20 melatonin 3 mg PO BEDTIME 07/25/20 07/25/20 omeprazole 20 mg PO 07/25/20 polyethylene glycol 3350 17 PO DAILY 07/25/20 trazodone 50 mg PO AC 07/25/20 07/25/20 DS: Summary Hospital Course Hospital Course: Chief Complaint: URI / Fever 75 y/o male who presented from [place] due to URI symptoms and fever. Patient has an extensive PMHX including Alzheimer disease for what is unable to provide with any significant hx. Per NH/ED attending, patient was noted to have her symptoms today including cough and on and off fever. On presentation to the ED patient was noted to be tachycardic, tachypneic, episodes of 104-103 fever, BP stable, Oxygen in the 80's on room air which improved after placed on nasal cannula. Imaging obtained inclusing CT chest shows evidence of right upper lobectomy, hilar mass concerning for maligancy and evidence of RLL pneumonia. Covid test negative. Decision for admission given. Hospital course: This patient with advanced dementia from [facility] presented with fever and upper respiratory symptoms and found to have pneumonia that is likely aspiration type. He tested negative for covid at the long term and again tested negative at the hospital. He was treated in hospital with IV Zosyn for 4 days and was seen by infectious disease and recommend to transitioned to PO Augmentin for total of 10 days of antibiotics. He was evaluated by Speech pathology team and recommending pureed solids and honey thick liquids with pills crushed in puree. Total assistance during meal times and strict aspiration precautions apply. I discussed treatment course with patient's who has been concerned about patient falling serveral times at SNF and wondering if he should be tested for stroke. I discussed with her that there were not new clinical finding suggestive of stroke and if stroke happened some time ago treatment plan woulnd not change at this point. I offered to do head CT but she declined at this time. Of note when patient was tested for covid on 07/29/2020 as requirement for long term placement, the test came back positive. He is not hypoxic, no signs of respiratory distress. Judging from the timeline, he liklely contracted the virus at the nursing where the was a known outbreak and just didn't test positive at the time admission. At this point he does not need any additional treatment for covid but will continue antibiotics for pneumonia. I discussed this with the over the phone. Status at Discharge Overall status at discharge: patient is progressing back to baseline Time Spent with Patient Time attestation: Total time spent providing and/or coordinating discharge services: Physical Exam Vital Signs: Vital Signs: Selected Entries 07/30/20 11:06 Temperature 98.6 F Pulse Rate 93 Respiratory Rate 19 Blood Pressure 117/58 L Pulse Oximetry 93 Oxygen Delivery Me thod Room Air Body Mass Index 30.4 General: confused at baseline Resp: clear lungs CVS: S1,S2,RRR GI: +BS, NT, no distention Skin: No rash Neuro: motor grossly intact Psych: flat DS: Data Data Completed and Pending Labs on day of discharge: 07/25/20 XR chest 1V Stat 07/25/20 00:05 Vital Signs Q30M 0.9 % Sodium Chloride [Ns] 2,760 ml IVCONT 2,760 mls/hr 07/25/20 00:19 SARS-CoV2/FLU/RSV Stat 07/25/20 00:20 Basic Metabolic Panel Stat Bilirubin Total Stat Complete Blood Count Auto Diff Stat Lactic Acid Stat Partial Thromboplastin Time Stat Prothrombin Time INR Stat 07/25/20 00:31 cefEPime HCl [Maxipime] 1 gm 0.9 % Sodium Chloride [Ns] 50 ml IV ONCE 07/25/20 00:45 cefEPime HCl [Maxipime] 1 gm IV .STK-MED ONE 07/25/20 01:02 CT chest wo con Stat 07/25/20 01:35 Ketorolac Tromethamine [Toradol] 15 mg IV ONCE ONE 07/25/20 05:13 Code Status Routine Transfer Order Routine 07/25/20 07:28 LORazepam [Ativan] 0.5 mg IVPUSH ONCE ONE 07/25/20 08:00 Doxycycline Hyclate [Vibramycin] 100 mg 0.9 % Sodium Chloride [Ns] 250 ml IV Q12H 07/25/20 09:07 Doxycycline Hyclate [Vibramycin] 100 mg IV .STK-MED ONE 07/25/20 Breakfast Cardiac Diet 07/25/20 10:22 Cont. Telemetry w/Vital Sign limit Q4HR Pulse Oximetry Q4HR 07/25/20 10:54 Piperacillin Sodium/Tazobactam [Zosyn] 3.375 gm IV .STK-MED ONE 07/25/20 11:00 Piperacillin Sodium/Tazobactam [Zosyn] 3.375 gm 0.9 % Sodium Chloride [Ns] 50 ml IV Q6H 07/25/20 11:11 Basic Metabolic Panel Routine Complete Blood Count Auto Diff Routine SLIDE REVIEW Routine 07/25/20 11:52 Flu Vacc [id number](6mos up)/PF [Fluarix Quad ] 0.5 ml IM .ONCE ONE 07/25/20 18:01 Piperacillin Sodium/Tazobactam [Zosyn] 3.375 gm IV .STK-MED ONE 07/25/20 21:16 Doxycycline Hyclate [Vibramycin] 100 mg IV .STK-MED ONE 07/25/20 23:57 Piperacillin Sodium/Tazobactam [Zosyn] 3.375 gm IV .STK-MED ONE 07/26/20 05:59 Piperacillin Sodium/Tazobactam [Zosyn] 3.375 gm IV .STK-MED ONE 07/26/20 06:26 Basic Metabolic Panel DAILY@0600 Complete Blood Count no Diff DAILY@0600 07/26/20 08:06 Doxycycline Hyclate [Vibramycin] 100 mg IV .STK-MED ONE 07/26/20 12:20 Piperacillin Sodium/Tazobactam [Zosyn] 3.375 gm IV .STK-MED ONE 07/26/20 16:33 Piperacillin Sodium/Tazobactam [Zosyn] 3.375 gm IV .STK-MED ONE 07/26/20 21:15 Doxycycline Hyclate [Vibramycin] 100 mg IV .STK-MED ONE 07/26/20 21:43 Glucose, Whole Blood Routine 07/27/20 00:16 Piperacillin Sodium/Tazobactam [Zosyn] 3.375 gm IV .STK-MED ONE 07/27/20 06:09 Piperacillin Sodium/Tazobactam [Zosyn] 3.375 gm IV .STK-MED ONE 07/27/20 07:58 Doxycycline Hyclate [Vibramycin] 100 mg IV .STK-MED ONE 07/27/20 11:14 Piperacillin Sodium/Tazobactam [Zosyn] 3.375 gm IV .STK-MED ONE 07/27/20 Lunch Cardiac Diet 07/27/20 16:15 Piperacillin Sodium/Tazobactam [Zosyn] 3.375 gm IV .STK-MED ONE 07/27/20 18:03 Transfer Order Routine 07/27/20 19:07 Doxycycline Hyclate [Vibramycin] 100 mg IV .STK-MED ONE 07/27/20 22:32 Piperacillin Sodium/Tazobactam [Zosyn] 3.375 gm IV .STK-MED ONE 07/28/20 04:45 Piperacillin Sodium/Tazobactam [Zosyn] 3.375 gm IV .STK-MED ONE 07/28/20 09:37 Doxycycline Hyclate [Vibramycin] 100 mg IV .STK-MED ONE 07/28/20 11:31 Piperacillin Sodium/Tazobactam [Zosyn] 3.375 gm IV .STK-MED ONE 07/28/20 11:46 Basic Metabolic Panel Routine Complete Blood Count no Diff Routine 07/28/20 18:19 Piperacillin Sodium/Tazobactam [Zosyn] 3.375 gm IV .STK-MED ONE 07/28/20 19:48 Doxycycline Hyclate [Vibramycin] 100 mg IV .STK-MED ONE 07/28/20 22:16 Piperacillin Sodium/Tazobactam [Zosyn] 3.375 gm IV .STK-MED ONE 07/29/20 04:03 Piperacillin Sodium/Tazobactam [Zosyn] 3.375 gm IV .STK-MED ONE Laboratory Last Values WBC 6.4 X10*3/uL (4.8-10.8) 07/28/20 11:46 RBC 4.14 X10*6/uL (4.60-5.80) L 07/28/20 11:46 Hgb 12.5 g/dl (14.0-18.0) L 07/28/20 11:46 Hct 39.3 % (42-52) L 07/28/20 11:46 MCV 94.9 fL (80-98) 07/28/20 11:46 MCH 30.2 pg (27.0-33.0) 07/28/20 11:46 MCHC 31.8 g/dl (31.0-36.0) 07/28/20 11:46 RDW 12.7 % (11.0-16.0) 07/28/20 11:46 Plt Count 163 X10*3/uL (160-400) 07/28/20 11:46 MPV 10.3 fL (9.4-12.4) 07/28/20 11:46 Immature Gran % (Auto) 0.5 % (0.0-0.4) H 07/25/20 11:11 Neut % (Auto) 84.8 % (45-73) H 07/25/20 11:11 Lymph % (Auto) 4.8 % (20-40) L 07/25/20 11:11 [place] % (Auto) 9.6 % (2-11) 07/25/20 11:11 Eos % (Auto) 0.1 % (0-4) 07/25/20 11:11 Baso % (Auto) 0.2 % (0-2) 07/25/20 11:11 Lymph # (Auto) 0.8 X10*3/uL (1.2-4.9) L 07/25/20 11:11 [place] # (Auto) 1.7 X10*3/uL (0.1-1.2) H 07/25/20 11:11 Eos # (Auto) 0.0 X10*3/uL (0.0-0.4) 07/25/20 11:11 Baso # (Auto) 0.0 X10*3/uL (0.0-0.2) 07/25/20 11:11 Abs Immat Gran (auto) 0.09 X10*3/uL (0.00-0.03) H 07/25/20 11:11 Absolute Neuts (auto) 14.7 X10*3/uL (2.0-8.3) H 07/25/20 11:11 Absolute Nucleated RBC 0.000 X10*3/uL (0.0-0.012) 07/28/20 11:46 Nucleated RBC % (auto) 0.0 /100WBC (0.0-0.2) 07/28/20 11:46 Smear Tech's Comments VERIFIED 07/25/20 11:11 PT 14.7 SEC (10.8-13.0) H 07/25/20 00:20 INR 1.2 (0.9-1.1) H 07/25/20 00:20 APTT 39.9 SEC (24.1-38.0) H 07/25/20 00:20 Sodium 145 mmol/L (135-145) 07/28/20 11:46 Potassium 3.6 mmol/l (3.3-5.1) 07/28/20 11:46 Chloride 109 mmol/L (96-108) H 07/28/20 11:46 Carbon Dioxide 24 mmol/L (22-29) 07/28/20 11:46 Anion Gap 16 (12-20) 07/28/20 11:46 BUN 21 mg/dL (9-16) H D 07/28/20 11:46 Creatinine 0.96 mg/dL (0.5-1.4) 07/28/20 11:46 Estim Creat Clear Calc 75.0 07/28/20 11:46 Estimated GFR > 60 07/28/20 11:46 POC Glucose 107 mg/dL (60-115) 07/26/20 21:43 Random Glucose 87 mg/dL (60-115) 07/28/20 11:46 Lactic Acid 1.3 mmol/L (0.5-2.0) 07/25/20 00:20 Calcium 8.1 mg/dL (8.4-10.2) L 07/28/20 11:46 Total Bilirubin 0.9 mg/dL (0.0-1.0) 07/25/20 00:20 Coronavirus (PCR) NEGATIVE (Negative) 07/25/20 00:19 Influenza Type A (PCR) NEGATIVE (Negative) 07/25/20 00:19 Influenza Type B (PCR) NEGATIVE (Negative) 07/25/20 00:19 RSV RNA Qual (PCR) NEGATIVE (Negative) 07/25/20 00:19 Preliminary micro results at discharge 07/25/20 00:20 Blood Culture - Preliminary Blood - Venous No growth after 48 hours. 07/25/20 00:21 Blood Culture - Preliminary Blood - Venous No growth after 48 hours. Discharge Plan Discharge Anticipated Discharge Date/Time: 07/30/20 11:14 Patient Disposition: Xfer SNF Referrals: [facility] [Outside] (PATIENT TO TRANSFER TO [facility]. ) Physician,Unknown [Primary Care Provider] - Discharge Medications: New amoxicillin-pot clavulanate 875-125 mg Tablet 875 mg PO Q12H Qty: 11 RF: 0 Continued Advair Diskus 50 mcg inhalation BID RF: 0 Depakote Sprinkles 125 mg PO BID RF: 0 gabapentin 600 mg tablet 600 tab PO RF: 0 Dulcolax (bisacodyl) 10 mg WA RF: 0 Fleet Enema 7 - 19 enema RF: 0 polyethylene glycol 3350 17 PO DAILY RF: 0 latanoprost 0.005 % drops ophthalmic (eye) BEDTIME RF: 0 levalbuterol tartrate 1 puff PO Q4H RF: 0 levothyroxine 50 mcg PO BEDTIME RF: 0 lorazepam 0.5 mg PO BID RF: 0 melatonin 3 mg PO BEDTIME RF: 0 Milk of Magnesia 30 ml PO RF: 0 Miralax 17 PRN (Reason: Constipation) RF: 0 Namenda 10 mg PO BID RF: 0 omeprazole 20 mg PO RF: 0 Remeron 15 mg PO BEDTIME RF: 0 trazodone 50 mg PO AC RF: 0 acetaminophen 650 mg PO Q4H PRN (Reason: pain or fever) RF: 0 Discharge Orders: Discharge Order (Routine); Ordered 07/29/20 Ordered By: Zhang Jeff Diet: other Activity on Discharge: As tolerated Discharge Date/Time: 07/30/20 16:21 Visit Report Forms: Patient Portal Discharge page Care Plan Goals: Resolution of pneumonia Health Concerns: Chronic aspiration from dementia Plan of Treatment: Take Augmentin as recommended and follow diet recommendation with pureed solids and honey thick liquids with pills crushed in puree. Total assistance during meal times and strict aspiration precautions apply. CDC Guidelines for home isolation: - Stay away from others - Limit contact with pets and animals: If you must care for a pet, wash your hands before and after interacting with them - Wear a mask if you are sick - Cover your mouth and nose with a tissue when you cough or sneeze. Dispose of tissues in a lined trash can and wash your hands immediately with soap and water for at least 20 seconds. If soap and water are not available, clean hands with alcohol-based hand router operator pin that contains at least 60% alcohol. - Clean your hands often with soap and water for at least 20 seconds - Avoid touching your eyes, nose and mouth with unwashed hands - Do not share dishes, drinking glasses, cups, eating utensils, towels, or bedding with other people in your home. After using these items, wash them thoroughly with soap and water or put in the disaster recovery manager. - Clean high-touch surfaces in your isolation area ( sick room and bathroom) every day; let a caregiver clean and disinfect high-touch surfaces in other areas of the home. Clean the area or item with soap and water or another detergent if it is dirty. Then, use a household disinfectant. Seek medical attention, but call first: - Seek medical care right away if your illness is worsening (for example, if you have difficulty breathing). - Call your doctor before going in: Before going to the doctor's office or emergency room, call ahead and tell them your symptoms. They will tell you what to do. - If possible, put on a facemask before you enter the building. If you can't put on a facemask, try to keep a safe distance from other people (at least 6 feet away). This will help protect the people in the office or waiting room. - Follow care instructions from your healthcare provider and local health department: Your local health authorities will give instructions on checking your symptoms and reporting information. Emergency warning signs for COVID-19: - Difficulty breathing or shortness of breath - Persistent pain or pressure in the chest - New confusion or inability to arouse - Bluish lips or face Additional Instructions: - []
[2020-07-29] MEDS: Amoxicillin/Potassium Clav 875 MG TABLET PO ×2 (09:53→20:30)
[2020-07-29 10:17] LABS: IDNOW Serial# 9DD0AD1C
[2020-07-29 10:18] LABS: COVID-19 Test Positive (Negative)
--- NOTE | 2020-07-29 10:20 | MHC.CM.NN ---
Addendum entered by Jess Yepez 07/29/20 11:00: Per hospitalist rounds, patient is covid positive. change of plan for discharge. Hospitalist to talk with , Slava. Original Note: PATIENT WILL TRANSFER TO [facility] TODAY. ONCE [facility] [address] IS REOPENED IMM DISCUSSED WITH SLAVA ([phone]) SLAVA AGREES WITH PLAN. IMM LEFT WITH PATIENT BELONGINGS PER CONVERSATION. IMM 07/28 IN CHART
--- NOTE | 2020-07-29 10:58 | PC.NURSE ---
Pt tested positive for Covid, let CC Kamila Cutler, know and [facility] know
--- NOTE | 2020-07-29 10:59 | PC.NURSE ---
rapid covidn for discharge came back positive. pt to be trans to [facility]. Dr Tomer [facility] imform pt's .
--- NOTE | 2020-07-29 11:07 | MHC.CM.PN ---
LAZARO CABRAL INFORMED OF CHANGE IN PLAN. PATIENT WAS GOING TO TRANSFER TO [facility], AND THEN BACK TO [facility] ONCE THEY REOPEN.
--- NOTE | 2020-07-29 11:30 | MHC.CM.PN ---
CASE MANAGEMENT SPOKE WITH [facility] LIAISON, YANELI. LIAISON STATES THAT SHE BELIEVES WE CAN TRANSFER THE PATIENT BACK TO [facility] TODAY, BUT WILL NOT KNOW UNTIL SHE GETS ACCEPTANCE FROM THE [place]. SHE DOES ANTICIPATE BEING ABLE TO ACCEPT PATIENT TODAY AND WILL CONTACT THIS MUSEUM OR ZOO DIRECTOR. HOSPITALIST MADE AWARE.
--- NOTE | 2020-07-29 11:41 | MHC.SLORD ---
[address] [address] Speech & Hearing [phone] Name: Ortiz Vital Date of : 1945 Age: 75 Date of Registration: 07/25/20 PUBLIC RELATIONS ANALYST attempted to see pt this date for dysphagia therapy. Pt was recommended pureed solids and honey thick liquids with pills crushed in puree with total assistance after a bedside swallow evaluation completed yesterday. Per RN report, pt is tolerating diet with no concerns at this time, as he consumed 100% of his breakfast this morning. Pt is in the process of being transferred to the fourth floor, as his rapid COVID test came back positive. PUBLIC RELATIONS ANALYST will follow up tomorrow morning. Speech Language Pathology Order Status:
--- NOTE | 2020-07-29 13:03 | MHC.CM.PN ---
PATIENT TO TRANSFER TO [facility] TOMORROW FOR 13:00 SEAN ([place] [employer] [phone]) IS AWARE AND SETTING UP TRANSPORT [facility]IA [facility]. SEAN ASKS FOR A CALL IN THE MORNING TO CONFIRM THAT 13:00 IS STILL ACCEPTABLE. PATIENT'S , SLAVA ([phone]) IS AWARE OF THIS PLAN AND IN AGREEMENT.
--- NOTE | 2020-07-29 13:22 | P.PNIM_ITS ---
Subjective Subjective Date of Service: 07/29/20 Interval History: Seen in f/u for sepsis due to PNA. Fever resolved. Tested positive this morning for screening covid for discharge to SNF--No symptoms of covid at this time including fever or hypoxia Review of Systems Unable to obtain review of systems secondary to patient's condition Physical Exam Vital Signs: Vital Signs: Last Vital Signs Temp 99.1 F 07/29/20 07:30 Pulse 87 07/29/20 07:30 Resp 17 07/29/20 07:30 BP 111/50 L 07/29/20 07:30 Pulse Ox 94 07/29/20 07:30 Body Mass Index 30.4 Objective Data Current Medications Generic Name Dose Route Start Last Admin Trade Name Freq PRN Reason Stop Dose Admin Acetaminophen 650 mg 07/26/20 14:57 07/27/20 15:32 Acetaminophen 325 Mg Tablet PO 650 mg Q6H PRN Administration Pain, Mild (Pain Scale 1-3) Amoxicillin/Clavulanate Potassium 875 mg 07/29/20 08:00 07/29/20 09:53 Amoxicillin/Potassium Clav 875 Mg Tablet PO 875 mg Q12H NIDHI Administration Divalproex Sodium 125 mg 07/25/20 09:00 07/29/20 07:39 Divalproex Sodium Sprinkles 125 Mg Cap.Spr PO 125 mg BID NIDHI Administration Guaifenesin 5 ml 07/26/20 16:38 Guaifenesin 100 Mg/5 Ml Liquid PO Q6H PRN Cough Heparin Sodium (Porcine) 5,000 unit 07/25/20 10:22 07/29/20 09:56 Heparin Sodium,Porcine 5,000 Unit/Ml Vial SUBCUT 5,000 unit Q8H NIDHI Administration Levothyroxine Sodium 50 mcg 07/25/20 21:00 07/28/20 20:52 Levothyroxine Sodium 50 Mcg Tablet PO 50 mcg BEDTIME NIDHI Administration Lorazepam 0.5 mg 07/25/20 14:36 07/25/20 14:54 Lorazepam 2 Mg/Ml Vial IVPUSH 0.5 mg Q6H PRN Administration anxiety/restlessness Memantine 10 mg 07/25/20 09:00 07/29/20 07:39 Memantine Hcl 10 Mg Tablet PO 10 mg BID NIDHI Administration Mirtazapine 15 mg 07/25/20 21:00 07/28/20 20:52 Mirtazapine 15 Mg Tablet PO 15 mg BEDTIME NIDHI Administration Sodium Chloride 3 ml 07/25/20 10:22 07/29/20 07:39 0.9 % Sodium Chloride Flush 3 Ml Syringe IVFLUSH 3 ml QSHIFT NIDHI Administration Trazodone HCl 50 mg 07/25/20 06:49 07/28/20 20:51 Trazodone Hcl 50 Mg Tablet PO 50 mg BEDTIME NIDHI Administration Labs CBC & Chem 7: 07/28/20 11:46 07/28/20 11:46 Microbiology Microbiology Results: Microbiology 07/25/20 00:20 Blood - Venous Blood Culture - Preliminary No growth after 48 hours. 07/25/20 00:21 Blood - Venous Blood Culture - Preliminary No growth after 48 hours. Assessment and Plan (1) Sepsis: Status: Acute (2) Pneumonia: Status: Acute (3) Sepsis with acute hypoxic respiratory failure: Status: Acute (4) Alzheimer disease: Status: Acute (5) Hypothyroid: Status: Acute (6) Depression: Status: Acute (7) COPD (chronic obstructive pulmonary disease): Status: Acute Assessment and Plan: 75/m with advanced dementia, history of lung cancer here with sepsis due to Pneumonia 1. Sepsis due to PNA--concern for aspiration. Blood cltures negative after 48 hours -Has received Zosyn x 4 days, and no oral Augmentin. An -monitor blood culture -O2 as needed -speech: Recommending honey thick liquids and pureed solids with pills crushed in puree. Tray may need to be withheld depending of pts level of alertness. Total assistance feeds with frequent verbal and tactile cues to complete swallow 2. Positive covid--He come from a facilitywith covid outbreak yet tested negative and tested negative on admission. Today however tested positive for covid as part of screening to go back to nursing. He likely was infected from correction and has now become positive. There is no reason to believe she contracted covid while here giving short time fram and staff taking precautions and known positive exposure at the SNF. At this point, no further treatment, move to covid isolation. Spoke to Infectiou control and updated them and to take appropriate measures as necesary 2. History of lung--outpatient follow o 3. Hypothyroidims--Levothyroxine 4. Dementia--Namenda Dispo by tomorrow
[2020-07-29 15:23] VITALS: BP 123/62; PULSE 78; RESP 20; TEMP 38.6; O2SAT 89
[2020-07-29] MEDS: Acetaminophen 325 MG TABLET 650 MG PO (15:48)
[2020-07-29 16:18] VITALS: O2SAT 92
[2020-07-29 19:51] VITALS: BP 116/59; PULSE 86; RESP 18; TEMP 36.2; O2SAT 93
[2020-07-29] MEDS: traZODone HCL 50 MG TABLET PO (21:22)
[2020-07-29] MEDS: Levothyroxine Sodium 50 MCG TABLET PO (21:22)
[2020-07-29] MEDS: Mirtazapine 15 MG TABLET PO (21:22)
[2020-07-30] VITALS: BP 141/80; PULSE 88; RESP 20; TEMP 36.9; O2SAT 93
[2020-07-30 03:18] VITALS: BP 126/87; PULSE 88; RESP 20; TEMP 36.8; O2SAT 94
[2020-07-30 07:37] VITALS: BP 160/79; PULSE 91; RESP 18; TEMP 36.4; O2SAT 93
[2020-07-30] MEDS: 0.9 % Sodium Chloride Flush 3 ML SYRINGE IVFLUSH (09:30)
[2020-07-30] MEDS: Amoxicillin/Potassium Clav 875 MG TABLET PO (09:30)
[2020-07-30] MEDS: Divalproex Sodium Sprinkles 125 MG CAP.DR.SPR PO (09:31)
[2020-07-30] MEDS: Memantine HCl 10 MG TABLET PO (09:31)
[2020-07-30 11:06] VITALS: BP 117/58; PULSE 93; RESP 19; TEMP 37; O2SAT 93
--- NOTE | 2020-07-30 11:13 | MHC.CM.PN ---
CM [facility] a detailed [facility]([phone]), confirming that Patient will be dc today at 1 PM and that [facility].
--- NOTE | 2020-07-30 13:26 | PC.NURSE ---
Pt oriented to self. Able to make needs known. Pt can be combative with care at times. Took all AM pills crushed in apple sauce. Pt is satting good on RA, no c/o sob or trouble breathing.
--- NOTE | 2020-07-30 15:03 | MHC.CM.PN ---
Rizwana at [facility] never received this vm and transportation was not set up by her for 1 PM for dc to [facility]. Per Rizwana, Patient has insurance besides [place] and can be transported by [facility]. CM has arranged picking tech for 4 PM. RN and /Georgina are aware of the change.
== END 2020-07-30 16:21 | disposition skilled nursing facility (03) | DRG 871 ==
LOC: HO.ED 07-25 02:15 → HO.IMC 07-25 07:07 → HO.S3 07-27 18:10 → HO.IMC 07-29 10:36
PROVIDERS: Student in an Organized Health Care Education/Training Program; Admitting Provider Internal Medicine; Emergency Provider Emergency Medicine Emergency Medical Services; Visit Provider Internal Medicine
DX: A41.9 Sepsis, unspecified organism (principal); U07.1 COVID-19; J96.01 Acute respiratory failure with hypoxia; J18.9 Pneumonia, unspecified organism; J44.0 Chronic obstructive pulmonary disease with (acute) lower respiratory infection; E03.9 Hypothyroidism, unspecified; F32.9 Major depressive disorder, single episode, unspecified; G30.9 Alzheimer's disease, unspecified; F02.80 Dementia in other diseases classified elsewhere, unspecified severity, without behavioral disturbance, psychotic disturbance, mood disturbance, and anxiety; Z79.890 Hormone replacement therapy; Z79.899 Other long term (current) drug therapy
CPT/HCPCS: 0241U; 36415; 71045; 71250; 80048; 82247; 82947; 83605; 85025; 85027; 85610; 85730; 87040; 87635; 92526; 92610; 96361; 96374; 96375; 99284; 99285; J0692; J1885; J2060; J2543

== ENCOUNTER 2020-07-30 18:40 | Emergency (ER) | payer OTHER, MEDICARE, SELFPAY ==
[2020-07-30 18:41] VITALS: BP 127/54; PULSE 91; RESP 18; TEMP 38.1; O2SAT 96; BMI 27.1
--- NOTE | 2020-07-30 18:42 | ECG_ITS ---
Test Reason : FEVER Blood Pressure : / mmHG Vent. Rate : 089 BPM Atrial Rate : 089 BPM P-R Int : 150 ms QRS Dur : 084 ms QT Int : 334 ms P-R-T Axes : 067 046 063 degrees QTc Int : 406 ms Normal sinus rhythm Intra-ventricular conduction delay Otherwise normal ECG No previous ECGs available Referred By: Consuelo Karimi Electronically Signed By:ANNABEL HODGE MD
--- NOTE | 2020-07-30 18:43 | XR_ITS ---
EXAMINATION: XR CHEST CLINICAL INFORMATION: 75-year-old male patient with dyspnea. COMPARISON: CT the chest on 07/25/2020. Chest x-ray done the same day. TECHNIQUE: AP portable semierect view of the chest was obtained. The time of examination was 7:00 PM. FINDINGS: The right hemithorax again shows decreased volume due to the right upper lobectomy. Right perihilar and right lower lobe airspace opacities are worse and are consistent with acute pneumonia. The left lung remains clear. Multiple rib deformities are present on the right side. XR/XR chest 1V IMPRESSION: Progressive airspace disease in the right lower lobe. Postoperative right chest consistent with right upper lobectomy.
--- NOTE | 2020-07-30 18:50 | PC.NURSE ---
Report taken from tyrell You RN resuming care. CXR at bedside. technical aid at bedside obtaining EKG.
--- NOTE | 2020-07-30 18:56 | ED.FEVER ---
HPI - Fever General Chief Complaint: Fever Stated Complaint: fever 103, low o2 sat, hypoxic, positive covid Time Seen by Provider: 07/30/20 18:42 Source: patient and EMS Mode of arrival: EMS Limitations: altered mental status (dementia) History of Present Illness HPI Narrative: per EMS patient was just discharged from here + COVID but also on PO augmentin for aspiration pneumonia - had a fever at facility so EMS was called, EMS was told they do not take febrile COVID patients, patient was also on 4L NC due to O2 sats 76% - increased to 94% MD elicited complaint: fever and other (RA sat 76%) Onset (ago): day(s) (today) Context: recent antibiotic use and recent hospitalization Exacerbating factors: nothing Relieving factors: other (oxygen) Associated symptoms: denies other symptoms Treatments prior to arrival fever: none Related Data Home Medications Medication Instructions Recorded Confirmed Advair Diskus 50 mcg INHALATION BID 07/25/20 07/25/20 Depakote Sprinkles 125 mg PO BID 07/25/20 07/25/20 Dulcolax (bisacodyl) [address] 07/25/20 Fleet Enema 7 - 19 enema 07/25/20 Milk of Magnesia 30 ml PO 07/25/20 Miralax 17 PRN 07/25/20 Namenda 10 mg PO BID 07/25/20 07/25/20 Remeron 15 mg PO BEDTIME 07/25/20 07/25/20 acetaminophen 650 mg PO Q4H PRN 07/25/20 07/25/20 gabapentin 600 tab PO 07/25/20 latanoprost drp OPHTHALMIC (EYE) BEDTIME 07/25/20 levalbuterol tartrate 1 puff PO Q4H 07/25/20 07/25/20 levothyroxine 50 mcg PO BEDTIME 07/25/20 07/25/20 lorazepam 0.5 mg PO BID 07/25/20 07/25/20 melatonin 3 mg PO BEDTIME 07/25/20 07/25/20 omeprazole 20 mg PO 07/25/20 polyethylene glycol 3350 17 PO DAILY 07/25/20 trazodone 50 mg PO AC 07/25/20 07/25/20 Previous Rx's Medication Instructions Recorded amoxicillin-pot clavulanate 875 mg PO Q12H #11 tab 07/29/20 Allergies Allergy/AdvReac Type Severity Reaction Status Date / Time No Known Allergies Allergy Verified 07/25/20 00:31 Review of Systems Review of Systems: ROS unable to be obtained due to altered mental status [facility] Past Medical History Attestation statement: The following information was validated with the patient. Medical History Alzheimer disease Aspiration pneumonia COPD (chronic obstructive pulmonary disease) Depression Diabetes 1.5, managed as type 2 Hyperlipidemia Hypothyroid Macular degeneration Neoplasm Obstructive apnea Pneumonitis Prostate CA PTSD (post-traumatic stress disorder) Social History Social History Household Members: Other Housing: Assisted Living Facility Alcohol intake: never Smoking Status: Never smoker Advance Directives: No Advance Directives Information Provided: Yes service: Yes Current occupational status: retired Physical Exam Vital Signs: Vital Signs: Last Vital Signs Temp 99.7 F 07/30/20 19:33 Pulse 80 07/30/20 20:19 Resp 20 07/30/20 20:19 BP 124/43 L 07/30/20 20:19 Pulse Ox 97 07/30/20 20:19 Body Mass Index 27.1 Appearance: Alert. Pleasant but confused No acute distress. Eyes: Pupils equal, round and reactive to light. ENT: Pharynx normal. Neck: Normal inspection. Neck supple. CVS: Normal heart rate and rhythm. Pulses normal. Respiratory: No respiratory distress. Breath sounds diminished Abdomen: Soft and non-tender. Skin: Skin warm and dry. Normal skin color. Normal skin turgor. Extremities: No lower extremity edema. No calf ttp Neuro: calm but confused No motor deficit. No sensory deficit. Course Course Course Narrative: will gently hydrate patient but at this time on 2L NC 97% no resp distress, given tylenol, given gentle fluid bolus but suspect he can be DC back to facility, given COVID status will need to recheck Na in 2 days, labs other than Na reassuring no lactic acid no WBC count - CXR worse but clinically appears stable and doing well on 2L NC, already on augmentin MDM - Fever MDM Narrative Medical decision making narrative: 75 yo male with dementia here with known COVID and aspiration pneumonia - EMS told that facility cannot keep febrile COVID patients, they did give him supplemental O2 with good response, will obtain labs, repeat imaging - treat fever - may need CM for dispo issue Lab Data Result diagrams: 07/30/20 19:23 07/30/20 19:16 Labs: Lab Results 07/30/20 07/30/20 07/30/20 Range/Units 19:16 19:16 19:16 WBC (4.8-10.8) X10*3/uL RBC (4.60-5.80) X10*6/uL Hgb (14.0-18.0) g/dl Hct (42-52) % MCV (80-98) fL MCH (27.0-33.0) pg MCHC (31.0-36.0) g/dl RDW (11.0-16.0) % Plt Count (160-400) X10*3/uL MPV (9.4-12.4) fL Immature Gran % (Auto) (0.0-0.4) % Neut % (Auto) (45-73) % Lymph % (Auto) (20-40) % [place] % (Auto) (2-11) % Eos % (Auto) (0-4) % Baso % (Auto) (0-2) % Lymph # (Auto) (1.2-4.9) X10*3/uL [place] # (Auto) (0.1-1.2) X10*3/uL Eos # (Auto) (0.0-0.4) X10*3/uL Baso # (Auto) (0.0-0.2) X10*3/uL Abs Immat Gran (auto) (0.00-0.03) X10*3/uL Absolute Neuts (auto) (2.0-8.3) X10*3/uL Absolute Nucleated RBC (0.0-0.012) X10*3/uL Nucleated RBC % (auto) (0.0-0.2) /100WBC Smear Tech's Comments PT 18.1 H D (10.8-13.0) SEC INR 1.5 H (0.9-1.1) APTT 38.2 H (24.1-38.0) SEC Sodium 150 H (135-145) mmol/L Potassium 4.6 D (3.3-5.1) mmol/l Chloride 112 H (96-108) mmol/L Carbon Dioxide 25 (22-29) mmol/L Anion Gap 18 (12-20) BUN 18 H (9-16) mg/dL Creatinine 0.90 (0.5-1.4) mg/dL Estim Creat Clear Calc 77.8 Estimated GFR > 60 Random Glucose 102 (60-115) mg/dL Lactic Acid (0.5-2.0) mmol/L Calcium 8.2 L (8.4-10.2) mg/dL Magnesium 2.3 (1.6-2.6) mg/dL Ferritin 618 H (20-250) ng/mL Total Bilirubin 0.4 (0.0-1.0) mg/dL Direct Bilirubin < 0.2 (0.0-0.5) mg/dL AST 90 H (5-37) U/L ALT 49 H (0-40) U/L Alkaline Phosphatase 71 (39-117) U/L Lactate Dehydrogenase 458 H (118-273) U/L B-Natriuretic Peptide 16 (<100) pg/mL Total Protein 6.8 (6.5-8.0) g/dL Albumin 3.3 L (3.5-5.0) g/dL Procalcitonin ng/mL 07/30/20 07/30/20 07/30/20 Range/Units 19:16 19:23 19:23 WBC 6.4 (4.8-10.8) X10*3/uL RBC 4.16 L (4.60-5.80) X10*6/uL Hgb 12.4 L (14.0-18.0) g/dl Hct 39.5 L (42-52) % MCV 95.0 (80-98) fL MCH 29.8 (27.0-33.0) pg MCHC 31.4 (31.0-36.0) g/dl RDW 12.5 (11.0-16.0) % Plt Count 163 (160-400) X10*3/uL MPV 11.0 (9.4-12.4) fL Immature Gran % (Auto) 0.8 H (0.0-0.4) % Neut % (Auto) 79.2 H (45-73) % Lymph % (Auto) 9.7 L (20-40) % [place] % (Auto) 9.9 (2-11) % Eos % (Auto) 0.2 (0-4) % Baso % (Auto) 0.2 (0-2) % Lymph # (Auto) 0.6 L (1.2-4.9) X10*3/uL [place] # (Auto) 0.6 (0.1-1.2) X10*3/uL Eos # (Auto) 0.0 (0.0-0.4) X10*3/uL Baso # (Auto) 0.0 (0.0-0.2) X10*3/uL Abs Immat Gran (auto) 0.05 H (0.00-0.03) X10*3/uL Absolute Neuts (auto) 5.1 (2.0-8.3) X10*3/uL Absolute Nucleated RBC 0.000 (0.0-0.012) X10*3/uL Nucleated RBC % (auto) 0.0 (0.0-0.2) /100WBC Smear Tech's Comments VERIFIED PT (10.8-13.0) SEC INR (0.9-1.1) APTT (24.1-38.0) SEC Sodium (135-145) mmol/L Potassium (3.3-5.1) mmol/l Chloride (96-108) mmol/L Carbon Dioxide (22-29) mmol/L Anion Gap (12-20) BUN (9-16) mg/dL Creatinine (0.5-1.4) mg/dL Estim Creat Clear Calc Estimated GFR Random Glucose (60-115) mg/dL Lactic Acid 2.0 (0.5-2.0) mmol/L Calcium (8.4-10.2) mg/dL Magnesium (1.6-2.6) mg/dL Ferritin (20-250) ng/mL Total Bilirubin (0.0-1.0) mg/dL Direct Bilirubin (0.0-0.5) mg/dL AST (5-37) U/L ALT (0-40) U/L Alkaline Phosphatase (39-117) U/L Lactate Dehydrogenase (118-273) U/L B-Natriuretic Peptide (<100) pg/mL Total Protein (6.5-8.0) g/dL Albumin (3.5-5.0) g/dL Procalcitonin 0.13 ng/mL ECG Data ECG #1: Attestation: I personally reviewed and interpreted this ECG as follows: ECG interpretation date: 07/30/20 ECG interpretation time: 18:57 Interpretation: Rate: 89 Rhythm: NSR [place]: normal Normal P waves. Normal EMMANUEL. Normal QRS complex. ST T wave : nonspecific qTC: normal prior studies: no acute ischemia The study has been interpreted contemporaneously by me. . Discharge Plan Discharge Clinical Impression: Aspiration pneumonia, COVID-19, Acute hypernatremia, Acute dehydration Patient Disposition: Xfer [facility] Additional Instructions: return to ED for any worsening symptoms or concerns continue antibiotics, your sodium was slightly high please orally hydrate and recheck within the next 48 hours, please treat fevers over 100.4 with tylenol, you can use supplemental O2 to treat low O2 sats - patient remained 97% on 2L NC Prescriptions: No Action Advair Diskus 50 mcg inhalation BID RF: 0 Depakote Sprinkles 125 mg PO BID RF: 0 gabapentin 600 mg tablet 600 tab PO RF: 0 Dulcolax (bisacodyl) [address] RF: 0 Fleet Enema 7 - 19 enema RF: 0 polyethylene glycol 3350 17 PO DAILY RF: 0 latanoprost 0.005 % drops ophthalmic (eye) BEDTIME RF: 0 levalbuterol tartrate 1 puff PO Q4H RF: 0 levothyroxine 50 mcg PO BEDTIME RF: 0 lorazepam 0.5 mg PO BID RF: 0 melatonin 3 mg PO BEDTIME RF: 0 Milk of Magnesia 30 ml PO RF: 0 Miralax 17 PRN (Reason: Constipation) RF: 0 Namenda 10 mg PO BID RF: 0 omeprazole 20 mg PO RF: 0 Remeron 15 mg PO BEDTIME RF: 0 trazodone 50 mg PO AC RF: 0 acetaminophen 650 mg PO Q4H PRN (Reason: pain or fever) RF: 0 amoxicillin-pot clavulanate 875-125 mg Tablet 875 mg PO Q12H Qty: 11 RF: 0 Referrals: Physician,Unknown [Primary Care Provider] - 2 days (repeat sodium level)
[2020-07-30 19:31] LABS: INTERNATIONAL NORM RATIO 1.5 (0.9-1.1); Prothrombin Time 18.1 SEC (10.8-13.0)
[2020-07-30 19:31] LABS: Basophils Percent Auto 0.2 % (0-2); Eosinophils Percent Auto 0.2 % (0-4); Hematocrit 39.5 % (42-52); Hemoglobin 12.4 g/dl (14.0-18.0); Imm Gran Abs Auto 0.05 X10*3/uL (0.00-0.03); Imm Gran Pct Auto 0.8 % (0.0-0.4); Lymphocytes Absolute Auto 0.6 X10*3/uL (1.2-4.9); Lymphocytes Percent Auto 9.7 % (20-40); MANUAL DIFF FLAG SCAN; Mean Corpuscular HGB Conc 31.4 g/dl (31.0-36.0); Mean Corpuscular Hemoglobin 29.8 pg (27.0-33.0); Monocytes Absolute Auto 0.6 X10*3/uL (0.1-1.2); Monocytes Percent Auto 9.9 % (2-11); Neutrophils Absolute Auto 5.1 X10*3/uL (2.0-8.3); Neutrophils Percent Auto 79.2 % (45-73); Platelet Count 163 X10*3/uL (160-400); Red Blood Count 4.16 X10*6/uL (4.60-5.80); Red Cell Distribution Width 12.5 % (11.0-16.0); SCAN SMEAR FLAG 1; White Blood Count 6.4 X10*3/uL (4.8-10.8)
[2020-07-30 19:33] VITALS: PULSE 108; RESP 26; TEMP 37.6
[2020-07-30 19:34] LABS: Partial Thromboplastin Time 38.2 SEC (24.1-38.0)
[2020-07-30 19:39] VITALS: BP 135/85; O2SAT 93
--- NOTE | 2020-07-30 19:48 | PC.NURSE ---
This RN at bedside. Pt altered, extremely combative. Pt is awake and alert, speaking full sentences but this RN unable to reason with pt. 3 people required at bedside to obtain and IV and bloodwork. Pt biting, kicking and trying to scratch staff. IV established, all labs obtained and sent for analysis. VSS. Pt medicated with Tylenol per EMAR. Continue to monitor.
[2020-07-30 19:49] LABS: SLIDE REVIEW VERIFIED
--- NOTE | 2020-07-30 19:55 | PC.NURSE ---
Georgina, to be called with updates.
[2020-07-30 19:59] LABS: B Type Natriuretic Peptide 16 pg/mL (<100)
[2020-07-30 20:02] LABS: Alanine Aminotransferase 49 U/L (0-40); Albumin Level 3.3 g/dL (3.5-5.0); Alkaline Phosphatase 71 U/L (39-117); Anion Gap 18 (12-20); Aspartate Amino Transferase 90 U/L (5-37); Bilirubin Direct < 0.2 mg/dL (0.0-0.5); Bilirubin Total 0.4 mg/dL (0.0-1.0); Blood Urea Nitrogen 18 mg/dL (9-16); Calcium 8.2 mg/dL (8.4-10.2); Carbon Dioxide 25 mmol/L (22-29); Chloride 112 mmol/L (96-108); Creatinine Clr Calc Pharmacy 77.8; Estimated Glomerular Filt Rate > 60; Glucose Random 102 mg/dL (60-115); Lactate Dehydrogenase 458 U/L (118-273); Magnesium 2.3 mg/dL (1.6-2.6); Potassium 4.6 mmol/l (3.3-5.1); Sodium 150 mmol/L (135-145); Total Protein 6.8 g/dL (6.5-8.0)
[2020-07-30 20:14] LABS: Ferritin 618 ng/mL (20-250)
[2020-07-30 20:16] LABS: Procalcitonin 0.13 ng/mL
[2020-07-30] MEDS: 0.9 % Sodium Chloride 500 ML IV (20:17)
[2020-07-30] MEDS: Piperacillin Sodium/Tazobactam 3.375 GM in 0.9 % Sodium Chloride 50 ML IV (20:17)
--- NOTE | 2020-07-30 20:18 | PC.NURSE ---
Pt medicated per EMAR with IVF and Zosyn. Pt resting in bed, asleep at this time. MD aware of pts inability to cooperate with care. Unable to obtain UA at this time, MD aware.
[2020-07-30 20:19] VITALS: BP 124/43; PULSE 80; RESP 20; O2SAT 97
--- NOTE | 2020-07-30 21:14 | PC.NURSE ---
Nurse to nurse given to SAMI Rosales. Florian, RN calling to inform her of plan to DC back to [facility].
[2020-07-30 21:55] VITALS: BP 112/38; PULSE 76; RESP 20; O2SAT 97
== END 2020-07-30 22:09 | disposition skilled nursing facility (03) ==
PROVIDERS: Emergency Provider Emergency Medicine
DX: U07.1 COVID-19 (principal); J69.0 Pneumonitis due to inhalation of food and vomit; E86.0 Dehydration; E87.0 Hyperosmolality and hypernatremia; R50.9 Fever, unspecified; R05 Cough; Z79.899 Other long term (current) drug therapy
CPT/HCPCS: 36415; 71045; 80048; 80076; 82728; 83605; 83615; 83735; 83880; 84145; 85025; 85610; 85730; 87040; 93005; 96361; 96365; 99284; J2543

== ENCOUNTER 2020-08-04 05:04 | Inpatient (IN) | payer OTHER, MEDICARE, SELFPAY ==
[2020-08-04] VITALS (10 sets, daily range): BP systolic 109–138; BP diastolic 52–67; PULSE 71–110; RESP 16–22; TEMP 36.3–38.7; O2SAT 86–96; BMI 24.5
--- NOTE | 2020-08-04 | CT_ITS ---
EXAMINATION: CT CHEST WITHOUT CONTRAST CLINICAL INFORMATION: Hypoxia. COMPARISON: Chest 07/30/2020 TECHNIQUE: Multidetector volumetric CT imaging of the chest was done. Axial MIP volume rendering provided. Sagittal and coronal reformatted images were obtained. This CT examination was performed using dose optimization techniques as appropriate, variously including the following: *Automated exposure control *Adjustment of mA and/or kV according to patient size (this includes techniques or standardized protocols for targeted exams where dose is matched to indication/reason for exam; i.e. 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 The left lung is clear. LUNGS: There are right upper lobectomy changes with airspace disease right parahilar region, dense consolidation right lower lobe and patchy opacity left upper lobe suprahilar region consistent with infiltrates. There is no pericardial effusion seen. No abnormal mediastinal or hilar lymph nodes. MEDIASTINUM: The central trachea and bronchi are widely patent. Heart size and the great vessels are normal caliber. PLEURA: There is no pleural effusion. No pleural mass or thickening. AXILLA: No abnormal axillary lymphadenopathy seen. The chest wall appears unremarkable. UPPER ABDOMEN: Visualized liver, spleen, gallbladder, pancreas, and adrenal glands are unremarkable. OSSEOUS STRUCTURES: No lytic or sclerotic process seen. There is mild ventral spondylosis mid and lower dorsal spine. CT/CT chest wo con IMPRESSION: Multilobar infiltrates most prominent in the right lower lobe. There are right upper lobectomy changes with loss of right lung volume.
--- NOTE | 2020-08-04 05:35 | ED_ITS ---
HPI - General Adult General Chief complaint: Upper Respiratory Symptoms Stated complaint: fever Time Seen by Provider: 08/04/20 05:12 Source: EMS Mode of arrival: EMS History of Present Illness HPI narrative: This is a 75-year-old male with significant past medical history of dementia, currently completing a course of antibiotics for aspiration and pneumonia and COVID-19 positive brought in by EMS from [facility] for reported complaints of patient agitation and fever . Attempts to contact [facility] for further clarification were unsuccessful. Related Data Home Medications Medication Instructions Recorded Confirmed Advair Diskus 50 mcg INHALATION BID 07/25/20 07/25/20 Depakote Sprinkles 125 mg PO BID 07/25/20 07/25/20 Dulcolax (bisacodyl) 10 mg UT 07/25/20 Fleet Enema 7 - 19 enema 07/25/20 Milk of Magnesia 30 ml PO 07/25/20 Miralax 17 PRN 07/25/20 Namenda 10 mg PO BID 07/25/20 07/25/20 Remeron 15 mg PO BEDTIME 07/25/20 07/25/20 acetaminophen 650 mg PO Q4H PRN 07/25/20 07/25/20 gabapentin 600 tab PO 07/25/20 latanoprost drp OPHTHALMIC (EYE) BEDTIME 07/25/20 levalbuterol tartrate 1 puff PO Q4H 07/25/20 07/25/20 levothyroxine 50 mcg PO BEDTIME 07/25/20 07/25/20 lorazepam 0.5 mg PO BID 07/25/20 07/25/20 melatonin 3 mg PO BEDTIME 07/25/20 07/25/20 omeprazole 20 mg PO 07/25/20 polyethylene glycol 3350 17 PO DAILY 07/25/20 trazodone 50 mg PO AC 07/25/20 07/25/20 Previous Rx's Medication Instructions Recorded amoxicillin-pot clavulanate 875 mg PO Q12H #11 tab 07/29/20 Allergies Allergy/AdvReac Type Severity Reaction Status Date / Time No Known Allergies Allergy Verified 07/25/20 00:31 Review of Systems Review of Systems: Yes Unobtainable due to mental status PMFSH Past Medical History Source: nursing notes reviewed Medical History Alzheimer disease Aspiration pneumonia COPD (chronic obstructive pulmonary disease) Depression Diabetes 1.5, managed as type 2 Hyperlipidemia Hypothyroid Macular degeneration Neoplasm Obstructive apnea Pneumonitis Prostate CA PTSD (post-traumatic stress disorder) Social History Social History Household Members: Other Housing: Assisted Living Facility Alcohol intake: never Smoking Status: Never smoker Smoked in Last 30 Days: No Use of substances other than those prescribed or required for medical reasons: No Advance Directives: No service: Yes Current occupational status: retired Physical Exam Vital Signs: Vital Signs: Last Vital Signs Temp 97.9 F 08/04/20 07:45 Pulse 110 H 08/04/20 05:13 Resp 22 H 08/04/20 07:45 BP 124/52 L 08/04/20 07:45 Pulse Ox 94 08/04/20 07:45 Body Mass Index 24.5 VITAL SIGNS: Reviewed. GENERAL: Chronically ill, in no acute distress. HEAD: Normocephalic/atraumatic, EYES: PERRLA, EOMI intact without pain, no nystagmus/pallor/icterus noted EARS: Ext canals without abnormality, TMs non-bulging and non-erythematous NOSE: Nares patent bilateral OROPHARYNX: no oral lesions noted, posterior pharynx clear and non-erythematous without noted tonsillar enlargement/erythema/exudates NECK: Supple, no adenopathy LUNGS: Normal breath sounds. No adventitious sounds or accessory muscle use. SpO2<91> room air CARDIOVASCULAR: Regular rate and rhythm without noted murmurs, no JVD or lower extremity edema. ABDOMEN: Soft, non-tender, non-distended with bowel sounds. No rigidity. No guarding. No palpable masses or hernias noted MUSCULOSKELETAL: No tenderness, deformities, or effusions noted on gross inspection. EXTREMITIES: No cyanosis, clubbing or edema. SKIN: Inspection of the skin reveals no rashes, ulcerations, jaundice, pallor, or petechiae. NEUROLOGIC: Alert , nonverbal Strength and sensation to light touch were grossly intact x 4. Course Course Course Narrative: This is a 75-year-old male with history and clinical presentation suggestive of possible mild dehydration versus elevated temperature given the observed tachycardia, however patient is otherwise hemodynamically stable. On review of prior documentation it is noted that patient requires supplemental oxygen during his evaluation here in the emergency department and the facility was instructed to use nasal cannula as needed to maintain oxygen saturation greater than 92%. Patient does have an underlying history of COPD, has recently had pneumonia, and is COVID-19 positive 07/29/2020. In addition, it was noted that patient had an elevated sodium level and the recommendation on prior visit was to repeat the sodium level in 2 days. Rectal temperature was significant for and elevation of 101 which explains his tachycardia (treated with rectal Tylenol), but on review of all of his lab work he is noted to have worsening hypernatremia and his free water deficit was calculated to be 5.6 L. He was placed on 2 L of nasal cannula with a good response in oxygenation. I discussed this case with the inpatient hospitalist team who is agreeable for admission. Medical Decision Making Lab Data Result diagrams: 08/04/20 05:43 08/04/20 05:43 Labs: Lab Results 08/04/20 08/04/20 Range/Units 05:43 05:43 WBC 8.4 (4.8-10.8) X10*3/uL RBC 4.76 (4.60-5.80) X10*6/uL Hgb 14.2 (14.0-18.0) g/dl Hct 45.2 (42-52) % MCV 95.0 (80-98) fL MCH 29.8 (27.0-33.0) pg MCHC 31.4 (31.0-36.0) g/dl RDW 12.7 (11.0-16.0) % Plt Count 419 H D (160-400) X10*3/uL MPV 10.1 (9.4-12.4) fL Immature Gran % (Auto) 0.5 H (0.0-0.4) % Neut % (Auto) 80.9 H (45-73) % Lymph % (Auto) 9.6 L (20-40) % [place] % (Auto) 8.9 (2-11) % Eos % (Auto) 0.1 (0-4) % Baso % (Auto) 0.0 (0-2) % Lymph # (Auto) 0.8 L (1.2-4.9) X10*3/uL [place] # (Auto) 0.8 (0.1-1.2) X10*3/uL Eos # (Auto) 0.0 (0.0-0.4) X10*3/uL Baso # (Auto) 0.0 (0.0-0.2) X10*3/uL Abs Immat Gran (auto) 0.04 H (0.00-0.03) X10*3/uL Absolute Neuts (auto) 6.8 (2.0-8.3) X10*3/uL Absolute Nucleated RBC 0.000 (0.0-0.012) X10*3/uL Nucleated RBC % (auto) 0.0 (0.0-0.2) /100WBC Sodium 156 H (135-145) mmol/L Potassium 4.3 (3.3-5.1) mmol/l Chloride 113 H (96-108) mmol/L Carbon Dioxide 25 (22-29) mmol/L Anion Gap 22 H (12-20) BUN 22 H (9-16) mg/dL Creatinine 1.12 (0.5-1.4) mg/dL Estim Creat Clear Calc 62.5 Estimated GFR > 60 Random Glucose 122 H (60-115) mg/dL Calcium 8.2 L (8.4-10.2) mg/dL Discharge Plan Discharge Clinical Impression: Hypernatremia, Hypoxia, COVID-19 Patient Disposition: Admitted As Inpatient
--- NOTE | 2020-08-04 05:45 | PC.NURSE ---
attempted to call [employer] for report 4 times. no answer.
[2020-08-04 05:47] LABS: Eosinophils Percent Auto 0.1 % (0-4); Hematocrit 45.2 % (42-52); Hemoglobin 14.2 g/dl (14.0-18.0); Imm Gran Abs Auto 0.04 X10*3/uL (0.00-0.03); Imm Gran Pct Auto 0.5 % (0.0-0.4); Lymphocytes Absolute Auto 0.8 X10*3/uL (1.2-4.9); Lymphocytes Percent Auto 9.6 % (20-40); MANUAL DIFF FLAG NO; Mean Corpuscular HGB Conc 31.4 g/dl (31.0-36.0); Mean Corpuscular Hemoglobin 29.8 pg (27.0-33.0); Mean Platelet Volume 10.1 fL (9.4-12.4); Monocytes Absolute Auto 0.8 X10*3/uL (0.1-1.2); Monocytes Percent Auto 8.9 % (2-11); Neutrophils Absolute Auto 6.8 X10*3/uL (2.0-8.3); Neutrophils Percent Auto 80.9 % (45-73); Platelet Count 419 X10*3/uL (160-400); Red Blood Count 4.76 X10*6/uL (4.60-5.80); Red Cell Distribution Width 12.7 % (11.0-16.0); White Blood Count 8.4 X10*3/uL (4.8-10.8)
[2020-08-04 06:16] LABS: Anion Gap 22 (12-20); Blood Urea Nitrogen 22 mg/dL (9-16); Calcium 8.2 mg/dL (8.4-10.2); Carbon Dioxide 25 mmol/L (22-29); Chloride 113 mmol/L (96-108); Creatinine Clr Calc Pharmacy 62.5; Estimated Glomerular Filt Rate > 60; Glucose Random 122 mg/dL (60-115); Potassium 4.3 mmol/l (3.3-5.1)
[2020-08-04 06:26] LABS: Sodium 156 mmol/L (135-145)
--- NOTE | 2020-08-04 06:58 | PC.NURSE ---
pt refuses all po intake. for this rn. attempted to medicate with tylenol and water DTI noted to buttocks.
--- NOTE | 2020-08-04 10:13 | PM.IMHP ---
History of Present Illness Date of Service: 08/04/20 <Coreen Zavaleta NP - Last Filed: 08/04/20 15:16> 75 year old man presenting from long term acute care registered nurse care facility with hypoxia and fever. He has dementia and is unable to give any information. His stated that she was called at 0300 this morning and told that he would be transferred to [facility] due to fever, combativeness and she was told that he may not have been taking his medications recently. He was discharged from [facility] on July 30. At that time he was treated for acute respiratory failure secondary to aspiration pneumonia. He had tested negative for COVID-19. He was treated with IV Zosyn and transitioned to oral Augmentin for 10 days. He was then tested on July 29 as requirement for [place] [facility] placement and the test came back positive. He was then transferred to shelter facility on July 30. In the ER, he was noted to have a fever of 101.6, heart rate 110, respiratory rate 22. He had 1 oxygen saturation of 91% however other than that it has been stable . He was also noted to have an elevated sodium of 156, on 07/30 it was 150. According to the patient's she suspects that he has not been eating or drinking enough. He was given tylenol in the ED. He will be admitted for further management and treatment of COVID pneumonia. <Coreen Zavaleta NP - Last Filed: 08/04/20 15:16> Review of Systems Review of Systems: Yes Unobtainable due to mental status <Coreen Zavaleta NP - Last Filed: 08/04/20 15:16> [facility] Medical History: Medical History (Updated 08/07/20 @ 00:00 by Susan Potter) Alzheimer disease Aspiration pneumonia COPD (chronic obstructive pulmonary disease) Depression Diabetes 1.5, managed as type 2 Hyperlipidemia Hypothyroid Macular degeneration Neoplasm Obstructive apnea Pneumonia Pneumonitis Prostate CA PTSD (post-traumatic stress disorder) Sepsis <Coreen Zavaleta NP - Last Filed: 08/04/20 15:16> Social History: Social History Household Members: Other Housing: [facility] Do you presently have visiting nurse or other home services: No Alcohol intake: never Smoking Status: Former smoker Smoked in Last 30 Days: No Use of substances other than those prescribed or required for medical reasons: No Currently Displaying Signs/Symptoms of Drug Intoxication Withdrawal: No Have you been hit, kicked, punched, or otherwise hurt by someone within the past year? If so, by whom?: No Do you feel safe in your current relationship?: No Is there a partner from a previous relationship who is making you feel unsafe now?: No Are you made to feel afraid or neglected: No Advance Directives: No Do you have thoughts of harming others: None Do you have a plan to hurt others: No Plan service: Yes Current occupational status: retired <Coreen Zavaleta NP - Last Filed: 08/04/20 15:16> Meds Allergies/Adverse reactions: Allergies Allergy/AdvReac Type Severity Reaction Status Date / Time No Known Allergies Allergy Verified 07/25/20 00:31 <Coreen Zavaleta NP - Last Filed: 08/04/20 15:16> Home medications: Home Medications Medication Instructions Recorded Confirmed Type amoxicillin-pot clavulanate 1 tab PO BID 08/04/20 08/04/20 History divalproex [Depakote Sprinkles] 250 mg PO BID 08/04/20 08/04/20 History fluticasone propion-salmeterol 1 inh INHALATION BID 08/04/20 08/04/20 History [Advair Diskus] gabapentin 600 mg PO DAILY 08/04/20 08/04/20 History latanoprost 1 drp OPHTHALMIC (EYE) QPM 08/04/20 08/04/20 History levalbuterol tartrate 1 puff INHALATION Q6H 08/04/20 08/04/20 History levothyroxine 50 mcg PO BEDTIME 08/04/20 08/04/20 History lorazepam 0.5 mg PO BID PRN 08/04/20 08/04/20 History melatonin 3 mg PO BEDTIME PRN 08/04/20 08/04/20 History memantine [Namenda] 10 mg PO BID 08/04/20 08/04/20 History mirtazapine [Remeron] 15 mg PO BEDTIME 08/04/20 08/04/20 History omeprazole 20 mg PO DAILY 08/04/20 08/04/20 History polyethylene glycol 3350 [Miralax] 17 g PO DAILY PRN 08/04/20 08/04/20 History trazodone 50 mg PO BEDTIME PRN 08/04/20 08/04/20 History <Coreen Zavaleta NP - Last Filed: 08/04/20 15:16> Physical Exam Vital Signs and Narrative: Vital Signs: Last Vital Signs Temp 97.9 F 08/04/20 07:45 Pulse 110 H 08/04/20 05:13 Resp 22 H 08/04/20 07:45 BP 124/52 L 08/04/20 07:45 Pulse Ox 94 08/04/20 07:45 Body Mass Index 24.5 <Coreen Zavaleta NP - Last Filed: 08/04/20 15:16> Appearing in no acute distress head is normocephalic atraumatic eyes pupils are PERRLA sclera is anicteric mouth throat mucous membranes are intact and moist neck is supple no lymphadenopathy, no JVD noted lungs normal expansion heart regular rate rhythm positive bowel sounds, abdomen is soft, nontender neuro confused <Coreen Zavaleta NP - Last Filed: 08/04/20 15:16> Results Labs CBC and Chem 7: : 08/06/20 05:40 08/07/20 09:04 <Coreen Zavaleta NP - Last Filed: 08/04/20 15:16> Labs: Laboratory Results - last 24 hr 08/04/20 08/04/20 05:43 05:43 MCV 95.0 MCH 29.8 MCHC 31.4 RDW 12.7 Plt Count 419 H D MPV 10.1 Immature Gran % (Auto) 0.5 H Neut % (Auto) 80.9 H Lymph % (Auto) 9.6 L [place] % (Auto) 8.9 Eos % (Auto) 0.1 Baso % (Auto) 0.0 Lymph # (Auto) 0.8 L [place] # (Auto) 0.8 Eos # (Auto) 0.0 Baso # (Auto) 0.0 Abs Immat Gran (auto) 0.04 H Absolute Neuts (auto) 6.8 Absolute Nucleated RBC 0.000 Nucleated RBC % (auto) 0.0 Anion Gap 22 H Estim Creat Clear Calc 62.5 Estimated GFR > 60 Random Glucose 122 H Calcium 8.2 L <Coreen Zavaleta NP - Last Filed: 08/04/20 15:16> Assessment and Plan (1) Hypernatremia: Status: Acute <Coreen Zavaleta NP - Last Filed: 08/04/20 15:16> (2) COVID-19: Status: Acute <Coreen Zavaleta NP - Last Filed: 08/04/20 15:16> 75 year old man admitted with covid pneumonia and hypernatremia Covid 19 pneumonia vs. aspiration. Recent treatment for aspiration pneumonia. Will treat with Decadron, Antibiotic, ID consultation. Chest CT Hypernatremia. Recently new. Will consult Nephrology, likely from dehydration and poor intake. IV fluids, recheck sodium this afternoon. Urine studied Dementia. Continue home medications. Hypothyroidism. Continue levothyroxine. GERD. Continue PPI. COPD. Continue respiratory treatments as needed. DVT prophylaxis with heparin. Discussed with Dr. Beebe DNR/DNI <Coreen Zavaleta NP - Last Filed: 08/04/20 15:16>
[2020-08-04 14:13] LABS: C Reactive Protein 14.82 mg/dL (< or = 0.50); Lactate Dehydrogenase 464 U/L (118-273)
[2020-08-04] MEDS: Dextrose 5 % 1,000 ML 100 ML IVCONT (14:28)
[2020-08-04 14:34] LABS: Ferritin 668 ng/mL (20-250)
--- NOTE | 2020-08-04 15:04 | PM.CNNEP ---
History of Present Illness Reason for Consult Consult date: 08/04/20 Chief Complaint Chief complaint: covid 19 pna, sepsis, hypernatremia Review of Systems Review of Systems Unable to obtain [facility] Past Medical History Medical History (Updated 08/18/20 @ 09:59 by Jamar Grubbs MD) Alzheimer disease Aspiration pneumonia COPD (chronic obstructive pulmonary disease) Depression Diabetes 1.5, managed as type 2 Hyperlipidemia Hypothyroid Macular degeneration Neoplasm Obstructive apnea Pneumonia Pneumonitis Prostate CA PTSD (post-traumatic stress disorder) Sepsis Social History Social History Household Members: Other Housing: [facility] Do you presently have visiting nurse or other home services: No Alcohol intake: never Smoking Status: Former smoker Smoked in Last 30 Days: No Use of substances other than those prescribed or required for medical reasons: No Currently Displaying Signs/Symptoms of Drug Intoxication Withdrawal: No Have you been hit, kicked, punched, or otherwise hurt by someone within the past year? If so, by whom?: No Do you feel safe in your current relationship?: No Is there a partner from a previous relationship who is making you feel unsafe now?: No Are you made to feel afraid or neglected: No Advance Directives: No Do you have thoughts of harming others: None Do you have a plan to hurt others: No Plan service: Yes Current occupational status: retired [employer] Allergies Allergy/AdvReac Type Severity Reaction Status Date / Time No Known Allergies Allergy Verified 07/25/20 00:31 Home Medications Medication Instructions Recorded Confirmed Type divalproex [Depakote Sprinkles] 250 mg PO BID 08/04/20 08/04/20 History fluticasone propion-salmeterol 1 inh INHALATION BID 08/04/20 08/04/20 History [Advair Diskus] gabapentin 600 mg PO DAILY 08/04/20 08/04/20 History latanoprost 1 drp OPHTHALMIC (EYE) QPM 08/04/20 08/04/20 History levalbuterol tartrate 1 puff INHALATION Q6H 08/04/20 08/04/20 History levothyroxine 50 mcg PO BEDTIME 08/04/20 08/04/20 History melatonin 3 mg PO BEDTIME PRN 08/04/20 08/04/20 History memantine [Namenda] 10 mg PO BID 08/04/20 08/04/20 History mirtazapine [Remeron] 15 mg PO BEDTIME 08/04/20 08/04/20 History omeprazole 20 mg PO DAILY 08/04/20 08/04/20 History polyethylene glycol 3350 [Miralax] 17 g PO DAILY PRN 08/04/20 08/04/20 History trazodone 50 mg PO BEDTIME PRN 08/04/20 08/04/20 History Physical Exam Vital Signs: Last Vital Signs Temp 97.7 F 08/04/20 13:56 Pulse 71 08/04/20 13:56 Resp 16 08/04/20 13:56 BP 125/64 08/04/20 13:56 Pulse Ox 96 08/04/20 13:56 Body Mass Index 24.5 Results Lab Results Result Diagrams: 08/06/20 05:40 08/07/20 09:04 Lab results: Chemistry 08/04/20 05:43 Sodium 156 H Potassium 4.3 Carbon Dioxide 25 BUN 22 H Creatinine 1.12 Calcium 8.2 L Hematology 08/04/20 05:43 WBC 8.4 Hgb 14.2 Plt Count 419 H D Assessment and Plan (1) Hypernatremia: Problem details: Pt seen and examined Consult dictated. Status: Acute
--- NOTE | 2020-08-04 15:13 | PM.EVENT ---
Event Note Date of Service: 08/04/20 Event Note: Attending Admission note Patient seen and examined. Case discussed with Coreen Zavaleta NP. Agree with her history and physical with the following additions / changes. 75 yo M being admitted for respiratory failure with hypoxia secondary to aspiration pneumonia + possible covid -- although his CT appears mostly secondary to aspiration. No evidence of sepsis at the time of admission. Will check cultures and start unasyn for aspiration coverage. D5W for his hyperNa Remainder per H&P
[2020-08-04] MEDS: Ampicillin Sodium/Sulbactam Na 3 GM in 0.9 % Sodium Chloride 100 ML IV ×2 (16:08→21:25)
[2020-08-04] MEDS: dexAMETHasone sod phosphate 4 MG/ML VIAL 6 MG IVPUSH (16:09)
[2020-08-04] MEDS: Heparin Sodium,Porcine 5,000 UNIT/ML VIAL 5000 UNIT SUBCUT (16:09)
[2020-08-04] MEDS: 0.9 % Sodium Chloride Flush 3 ML SYRINGE IVFLUSH ×2 (16:10→21:26)
[2020-08-04] MEDS: Latanoprost 0.005 % Ophth Sol 2.5 ML DROPS 1 DROP EYE-BOTH (16:30)
[2020-08-04 16:33] LABS: Lactic Acid 1.1 mmol/L (0.5-2.0)
--- NOTE | 2020-08-04 17:17 | CONS_ITS ---
DATE OF SERVICE: REASON FOR CONSULTATION: I was called to see this patient to assist in the management of hypernatremia and acute kidney injury. HISTORY OF PRESENT ILLNESS: To summarize, Ortiz is a 75-year-old man, who is a resident of [facility], was brought in because of hypoxia, fever, and he had COVID pneumonia, is currently being treated for the same. His initial serum sodium was 150, which has increased to 156, serum creatinine was 0.9, it was increased to 1.2. He is currently on IV D5W and this consultation has been requested. PAST MEDICAL HISTORY: Ongoing medical problems include history of Alzheimer disease, COPD, diabetes, depression, hyperlipidemia, hypothyroidism, obstructive sleep apnea, history of prostate cancer, and posttraumatic stress disorder. SOCIAL HISTORY: He is a resident of an assisted living. No history of alcohol abuse or drug abuse. MEDICATIONS: At the time of admission included amoxicillin, Depakote, gabapentin, levalbuterol, levothyroxine, lorazepam, Namenda, Remeron, omeprazole, trazodone, MiraLAX. ALLERGIES: NO KNOWN DRUG ALLERGIES HAVE BEEN DOCUMENTED. REVIEW OF SYSTEMS: Not obtained from the patient. PHYSICAL EXAMINATION: GENERAL: Ortiz is an elderly man, who appears ill. VITAL SIGNS: Blood pressure of 120/50, pulse 100 per minute, temperature 97.7. LUNGS: Bilateral rhonchi. HEART: S1, S2 heard. No gallop. ABDOMEN: Soft, nontender. EXTREMITIES: No edema. No involuntary movements. LABORATORY DATA: Hemoglobin 14.2. BUN 22, creatinine 1.12, sodium 156, blood sugar 122. No urine studies available in the past. He had no significant proteinuria about a year ago. IMPRESSION: 75-year-old man with Alzheimer's, admitted with COVID pneumonia, currently has acute kidney injury and hypernatremia due to free water deficit. RECOMMENDATIONS: Our recommendation will be to gradually correct the serum sodium with replacement of hypotonic fluids. I agree with D5W. Keep intake more than the output. Maintain systolic blood pressure more than 100 mmHg. Avoid nephrotoxins and avoid hypotension. We will watch urine output closely and renal function should improve once he is hydrated. I will obtain a urinalysis, urine sodium, creatinine, protein, osmolality. We will avoid rapid correction, rate of correction should be 0.5 millimole per liter per hour and not more than 10 millimoles in a 24-hour period. We will follow him as needed. MD PATRICE Plascencia/MODL / [id number]
[2020-08-04 18:31] LABS: Glucose, Whole Blood 133 mg/dL (60-115)
[2020-08-04 19:52] LABS: Anion Gap 15 (12-20); Blood Urea Nitrogen 24 mg/dL (9-16); Calcium 7.8 mg/dL (8.4-10.2); Carbon Dioxide 29 mmol/L (22-29); Chloride 114 mmol/L (96-108); Creatinine Clr Calc Pharmacy 76.9; Estimated Glomerular Filt Rate > 60; Glucose Random 133 mg/dL (60-115); Potassium 3.8 mmol/l (3.3-5.1); Sodium 154 mmol/L (135-145)
[2020-08-04] MEDS: Divalproex Sodium Sprinkles 125 MG CAP.DR.SPR 250 MG PO (21:26)
--- NOTE | 2020-08-04 22:10 | P.CNID_ITS ---
History of Present Illness Data of Consult Service Date: 08/04/20 Requesting physician: Trenton Beebe Primary Care Provider: Harley Hughes MD [facility] Reason for consult: shortness of breath He presents to hospital with cough and shortness of breath He was recently in hospital and received Zosyn for 4 days and then po Augmentin for 10 d total He has fever to 101 at facility and transferred back here He left hospital on 07/30 [facility] Past Medical History Medical History Alzheimer disease Aspiration pneumonia COPD (chronic obstructive pulmonary disease) Depression Diabetes 1.5, managed as type 2 Hyperlipidemia Hypothyroid Macular degeneration Neoplasm Obstructive apnea Pneumonitis Prostate CA PTSD (post-traumatic stress disorder) Social History Social History Household Members: Other Housing: Jail Do you presently have visiting nurse or other home services: No Alcohol intake: never Smoking Status: Former smoker Smoked in Last 30 Days: No Use of substances other than those prescribed or required for medical reasons: No Currently Displaying Signs/Symptoms of Drug Intoxication Withdrawal: No Have you been hit, kicked, punched, or otherwise hurt by someone within the past year? If so, by whom?: No Do you feel safe in your current relationship?: No Is there a partner from a previous relationship who is making you feel unsafe now?: No Are you made to feel afraid or neglected: No Advance Directives: No Do you have thoughts of harming others: None service: Yes Current occupational status: retired Meds Allergies Allergy/AdvReac Type Severity Reaction Status Date / Time No Known Allergies Allergy Verified 07/25/20 00:31 Home Medications Medication Instructions Recorded Confirmed Type amoxicillin-pot clavulanate 1 tab PO BID 08/04/20 08/04/20 History divalproex [Depakote Sprinkles] 250 mg PO BID 08/04/20 08/04/20 History fluticasone propion-salmeterol 1 inh INHALATION BID 08/04/20 08/04/20 History [Advair Diskus] gabapentin 600 mg PO DAILY 08/04/20 08/04/20 History latanoprost 1 drp OPHTHALMIC (EYE) QPM 08/04/20 08/04/20 History levalbuterol tartrate 1 puff INHALATION Q6H 08/04/20 08/04/20 History levothyroxine 50 mcg PO BEDTIME 08/04/20 08/04/20 History lorazepam 0.5 mg PO BID PRN 08/04/20 08/04/20 History melatonin 3 mg PO BEDTIME PRN 08/04/20 08/04/20 History memantine [Namenda] 10 mg PO BID 08/04/20 08/04/20 History mirtazapine [Remeron] 15 mg PO BEDTIME 08/04/20 08/04/20 History omeprazole 20 mg PO DAILY 08/04/20 08/04/20 History polyethylene glycol 3350 [Miralax] 17 g PO DAILY PRN 08/04/20 08/04/20 History trazodone 50 mg PO BEDTIME PRN 08/04/20 08/04/20 History Physical Exam Vital Signs: Vital Signs: Last Vital Signs Temp 97.3 F 08/04/20 19:37 Pulse 94 08/04/20 19:37 Resp 20 08/04/20 19:37 BP 115/56 L 08/04/20 19:37 Pulse Ox 92 08/04/20 19:37 Body Mass Index 24.5 Const: General: cooperative HENMT: Head: Yes normal to inspection Mouth: Normal oral and palatal mucosa present Resp: Effort & Inspection: normal respiratory effort Cardio: Rate: regular rate Rhythm: regular rhythm GI: Inspection: Yes normal to inspection Palpation (GI): nontender : General: Yes no CVA tenderness Back/Spine/Pelvis: Back: no CVA tenderness Skin: General skin exam: no rashes or lesions noted Assessment and Plan (1) COVID-19: Problem details: He has tested positive for COVID He has received full treatment just now for aspiration pneumonia He has infiltrates represent resolving pneumonia and COVID Status: Acute Would stop Unasyn Agree with Dexamethasone for 10 days IV then po He has very limited oxygen needs,will follow (2) Sepsis with acute hypoxic respiratory failure: Status: Acute Results Labs CBC & Chem 7: 08/04/20 05:43 08/04/20 18:48 Labs: Short CBC 08/04/20 Range/Units 05:43 WBC 8.4 (4.8-10.8) X10*3/uL Hgb 14.2 (14.0-18.0) g/dl Hct 45.2 (42-52) % Plt Count 419 H D (160-400) X10*3/uL BMP 08/04/20 08/04/20 05:43 18:48 Sodium 156 H 154 H Potassium 4.3 3.8 Chloride 113 H 114 H Carbon Dioxide 25 29 BUN 22 H 24 H Creatinine 1.12 0.91 Calcium 8.2 L 7.8 L
[2020-08-05] MEDS: Dextrose 5 % 1,000 ML 100 ML IVCONT ×3 (01:28→23:10)
[2020-08-05] MEDS: Heparin Sodium,Porcine 5,000 UNIT/ML VIAL 5000 UNIT SUBCUT (01:28)
[2020-08-05 03:10] VITALS: BP 136/59; PULSE 68; RESP 18; TEMP 36.6; O2SAT 85
[2020-08-05 06:52] LABS: Hematocrit 45.3 % (42-52); Hemoglobin 13.8 g/dl (14.0-18.0); Imm Gran Abs Auto 0.07 X10*3/uL (0.00-0.03); Imm Gran Pct Auto 0.7 % (0.0-0.4); Lymphocytes Absolute Auto 0.6 X10*3/uL (1.2-4.9); Lymphocytes Percent Auto 6.2 % (20-40); MANUAL DIFF FLAG SCAN; Mean Corpuscular HGB Conc 30.5 g/dl (31.0-36.0); Mean Corpuscular Hemoglobin 29.6 pg (27.0-33.0); Mean Corpuscular Volume 97.2 fL (80-98); Mean Platelet Volume 10.6 fL (9.4-12.4); Monocytes Absolute Auto 0.5 X10*3/uL (0.1-1.2); Monocytes Percent Auto 4.6 % (2-11); Neutrophils Absolute Auto 8.9 X10*3/uL (2.0-8.3); Neutrophils Percent Auto 88.5 % (45-73); Platelet Count 477 X10*3/uL (160-400); Red Blood Count 4.66 X10*6/uL (4.60-5.80); Red Cell Distribution Width 12.7 % (11.0-16.0); SCAN SMEAR FLAG 1; White Blood Count 10.1 X10*3/uL (4.8-10.8)
[2020-08-05 07:11] LABS: Anion Gap 24 (12-20); Blood Urea Nitrogen 22 mg/dL (9-16); Calcium 8.2 mg/dL (8.4-10.2); Carbon Dioxide 22 mmol/L (22-29); Chloride 110 mmol/L (96-108); Creatinine Clr Calc Pharmacy 78.7; Estimated Glomerular Filt Rate > 60; Glucose Random 136 mg/dL (60-115); Potassium 3.7 mmol/l (3.3-5.1); Sodium 152 mmol/L (135-145)
[2020-08-05] MEDS: dexAMETHasone sod phosphate 4 MG/ML VIAL 6 MG IVPUSH (08:05)
[2020-08-05 08:23] LABS: SLIDE REVIEW VERIFIED
--- NOTE | 2020-08-05 10:34 | PM.PNNEP ---
Subjective Subjective Date of Service: 08/05/20 Principal diagnosis: hyperna Interval history: Seen and examined. Lethargic/confused Physical Exam Vital Signs: Vital Signs: Last Vital Signs Temp 97.9 F 08/05/20 03:10 Pulse 68 08/05/20 03:10 Resp 18 08/05/20 03:10 BP 136/59 L 08/05/20 03:10 Pulse Ox 85 L 08/05/20 03:10 Body Mass Index 24.5 Const: General: cooperative HENMT: Head: Yes normal to inspection Mouth: Normal oral and palatal mucosa present Resp: Effort & Inspection: normal respiratory effort Cardio: Rate: regular rate Rhythm: regular rhythm GI: Inspection: Yes normal to inspection Palpation (GI): nontender : General: Yes no CVA tenderness Back/Spine/Pelvis: Back: no CVA tenderness Skin: General skin exam: no rashes or lesions noted Assessment & Plan Assessment and plan (1) COVID-19: Problem details: He has tested positive for COVID He has received full treatment just now for aspiration pneumonia He has infiltrates represent resolving pneumonia and COVID Status: Acute Assessment and Plan: Would stop Unasyn Agree with Dexamethasone for 10 days IV then po He has very limited oxygen needs,will follow (2) Sepsis with acute hypoxic respiratory failure: Status: Acute Assessment and Plan: HyperNA; suspect d/t poor po intake and blunted thirst and limited access to PO fluids...doubt DI REC: incr FWater replacement with D5 W 150/hr and track SNa; will check Uosm to make sure not inappr dilute which if it is this would raise ques of DI Time Spent With Patient Time: Total time spent is greater than 50% in coordination of care (as documented) at patient's floor/unit and/or counseling patient:
--- NOTE | 2020-08-05 10:39 | PM.PNNEP ---
Subjective Subjective Date of Service: 08/05/20 Principal diagnosis: hyperna Interval history: Seen and examined. Lethargic/confused Note CORRECTED..see below Physical Exam Vital Signs: Vital Signs: Last Vital Signs Temp 97.9 F 08/05/20 03:10 Pulse 68 08/05/20 03:10 Resp 18 08/05/20 03:10 BP 136/59 L 08/05/20 03:10 Pulse Ox 85 L 08/05/20 03:10 Body Mass Index 24.5 Const: General: cooperative HENMT: Head: Yes normal to inspection Mouth: Normal oral and palatal mucosa present Resp: Effort & Inspection: normal respiratory effort Cardio: Rate: regular rate Rhythm: regular rhythm GI: Inspection: Yes normal to inspection Palpation (GI): nontender : General: Yes no CVA tenderness Back/Spine/Pelvis: Back: no CVA tenderness Skin: General skin exam: no rashes or lesions noted Assessment & Plan Assessment and plan (1) COVID-19: Problem details: He has tested positive for COVID He has received full treatment just now for aspiration pneumonia He has infiltrates represent resolving pneumonia and COVID Status: Acute Assessment and Plan: Would stop Unasyn Agree with Dexamethasone for 10 days IV then po He has very limited oxygen needs,will follow (2) Sepsis with acute hypoxic respiratory failure: Status: Acute Assessment and Plan: CORRECTION SNA 152 is from yesterday and today SNa is pending so no need to incr D5W rate unless SNa remains > 150..susepct it will be imporved as he has been getting D5W 100/hr since yesterday HyperNA; suspect d/t poor po intake and blunted thirst and limited access to PO fluids...doubt DI REC: check SNA this am and then deter what IVF and rate is needed ; will check Uosm to make sure not inappr dilute which if it is this would raise ques of DI Time Spent With Patient Time: Total time spent is greater than 50% in coordination of care (as documented) at patient's floor/unit and/or counseling patient:
[2020-08-05] MEDS: Morphine Sulfate 2 MG/ML CARTRIDGE IVPUSH (11:09)
[2020-08-05 12:00] VITALS: BP 126/53; PULSE 89; RESP 19; TEMP 36.5; O2SAT 93
[2020-08-05 13:09] LABS: SARS COV2 IgG Positive (Negative)
--- NOTE | 2020-08-05 13:30 | MHC.CM.PN ---
Male 75 DX Covid+. He had been living at [facility]. He was LTC for the past year( per wifes report). He was here at [facility] tested +Covid. He was not accepted to return due to the virus. He was DC from [facility] to [facility]. He has a PMH of Dementia. Mrs Vital is considering hospice. The Hospitalist had offered Hospice to her earlier today. Hospice will not be referred until his makes a decision. A referral was sent to [facility] at the request of the Pts . He may need to return to [facility]. Transport vis BLS. Emotional support and encouragement provided. CM will follow.
[2020-08-05 14:54] VITALS: BMI 24.5
--- NOTE | 2020-08-05 15:37 | HO.PM.IMPN ---
Subjective Subjective Date of Service: 08/05/20 Interval History: seen and examined agitated this AM ROS unreliable Physical Exam Vital Signs: Vital Signs: Last Vital Signs Temp 97.7 F 08/05/20 12:00 Pulse 89 08/05/20 12:00 Resp 19 08/05/20 12:00 BP 126/53 L 08/05/20 12:00 Pulse Ox 93 08/05/20 12:00 Body Mass Index 24.5 Const: Other: General - agitated Cardiovascular - regular rate and rhythm, S1-S2 Lungs - normal respiratory effort, clear to auscultation bilaterally, no wheezing Abdomen - soft, nontender, no rebound or guarding Extremities - no edema bilaterally Neuro - non-focal Objective Data Current Medications Generic Name Dose Route Start Last Admin Trade Name Freq PRN Reason Stop Dose Admin Acetaminophen 650 mg 08/04/20 13:58 Acetaminophen 325 Mg Tablet PO Q6H PRN Pain, Mild (Pain Scale 1-3) Dexamethasone Sodium Phosphate 6 mg 08/04/20 15:15 08/05/20 08:05 Dexamethasone Sod Phosphate 4 Mg/Ml Vial IVPUSH 08/13/20 09:01 6 mg DAILY NIDHI Administration Divalproex Sodium 250 mg 08/04/20 21:00 08/05/20 08:08 Divalproex Sodium Sprinkles 125 Mg Cap.DrSilkeSpr PO Not Given BID NIDHI Fluticasone/Vilanterol 1 puff 08/05/20 08:00 08/05/20 07:47 Fluticasone/Vilanterol 100/25 Blst.W.Dev INHALE Not Given RDAILY [facility] Gabapentin 600 mg 08/05/20 09:00 08/05/20 08:08 Gabapentin 600 Mg Tablet PO Not Given DAILY NIDHI Heparin Sodium (Porcine) 5,000 unit 08/04/20 14:00 08/05/20 13:28 Heparin Sodium,Porcine 5,000 Unit/Ml Vial SUBCUT Not Given Q12H NIDHI Dextrose 1,000 mls @ 100 mls/hr 08/04/20 13:45 08/05/20 09:42 D5w IVCONT 100 mls/hr .Q10H NIDHI Administration Latanoprost 1 drop 08/04/20 17:00 08/04/20 16:30 Latanoprost 0.005 % Ophth Tisha 2.5 Ml Drops EYE-BOTH 1 drop DAILY@1700 NIDHI Administration Levothyroxine Sodium 50 mcg 08/04/20 21:00 08/04/20 21:29 Levothyroxine Sodium 50 Mcg Tablet PO Not Given BEDTIME NIDHI Lorazepam 0.5 mg 08/04/20 13:58 Lorazepam 0.5 Mg Tablet PO BID PRN Anxiety Melatonin 3 mg 08/04/20 13:58 Melatonin 3 Mg Tablet PO BEDTIME PRN Insomnia Memantine 10 mg 08/04/20 21:00 08/05/20 08:08 Memantine Hcl 10 Mg Tablet PO Not Given BID NIDHI Mirtazapine 15 mg 08/04/20 21:00 08/04/20 21:29 Mirtazapine 15 Mg Tablet PO Not Given BEDTIME [facility] Non-Formulary Medication 1 puff 08/04/20 13:58 Levalbuterol Tartrate INHALE Q6H NIDHI Omeprazole 20 mg 08/05/20 06:30 08/05/20 04:50 Omeprazole 20 Mg Capsule. PO Not Given DAILY@0630 [facility] Ondansetron HCl 4 mg 08/04/20 13:58 Ondansetron Hcl 4 Mg/2 Ml Vial IVPUSH Q8H PRN Nausea and Vomiting Pharmacy Consult 1 each 08/04/20 09:44 Consult Rx Perform Med Rec MISCELLANE ONCE PRN Consult order Polyethylene Glycol 17 gm 08/04/20 14:57 Polyethylene Glycol 3350 17 Gm Powd.Pack PO DAILY PRN Constipation Sodium Chloride 3 ml 08/04/20 16:00 08/05/20 08:08 0.9 % Sodium Chloride Flush 3 Ml Syringe IVFLUSH Not Given QSHIFT NIDHI Trazodone HCl 50 mg 08/04/20 13:58 Trazodone Hcl 50 Mg Tablet PO BEDTIME PRN Insomnia Labs CBC & Chem 7: 08/05/20 05:47 08/05/20 05:47 Assessment and Plan (1) COVID-19: Status: Acute Assessment and Plan: This is a 75 yo M with advanced dementia who is admitted for worsening confusion, fevers. 1. COVID 19/aspiration leading to acute toxic/metabolic encephalopathy iv decadron ID input appreciated -- stop aspiration Rx (just completed this recently) no hypoxia 2. HyperNa due to poor oral intake D5W recheck SNa now increase D5W rate if still below 150 appreciate nephrology input 3. Advanced Dementia with behavioral disturbances patient extremely agitated and delirious redirect as much as possible 4. Hypothyroidsm synthroid continue the remainder of his meds DNR/DNI D/w his at length today -- recommended to her that he may be appropriate for hospice transition. She is considering it and will re-discuss tomorrow.
[2020-08-05] MEDS: 0.9 % Sodium Chloride Flush 3 ML SYRINGE IVFLUSH (15:41)
[2020-08-05] MEDS: Latanoprost 0.005 % Ophth Sol 2.5 ML DROPS 1 DROP EYE-BOTH (15:41)
[2020-08-05 15:47] VITALS: BP 124/64; PULSE 92; RESP 18; TEMP 36.7
[2020-08-05 16:07] VITALS: O2SAT 93
[2020-08-05 16:32] LABS: Anion Gap 18 (12-20); Blood Urea Nitrogen 22 mg/dL (9-16); Calcium 8.2 mg/dL (8.4-10.2); Carbon Dioxide 26 mmol/L (22-29); Chloride 109 mmol/L (96-108); Creatinine Clr Calc Pharmacy 83.3; Estimated Glomerular Filt Rate > 60; Glucose Random 165 mg/dL (60-115); Potassium 3.8 mmol/l (3.3-5.1); Sodium 149 mmol/L (135-145)
[2020-08-05 19:11] VITALS: BP 122/56; PULSE 79; RESP 19; TEMP 35.8; O2SAT 93
[2020-08-05] MEDS: Divalproex Sodium Sprinkles 125 MG CAP.DR.SPR 250 MG PO (22:52)
[2020-08-05] MEDS: Mirtazapine 15 MG TABLET PO (22:52)
[2020-08-05] MEDS: Levothyroxine Sodium 50 MCG TABLET PO (22:52)
[2020-08-05] MEDS: Memantine HCl 10 MG TABLET PO (22:53)
[2020-08-06] VITALS (9 sets, daily range): BP systolic 99–141; BP diastolic 49–94; PULSE 79–97; RESP 16–20; TEMP 36.1–36.8; O2SAT 85–97
[2020-08-06] MEDS: Heparin Sodium,Porcine 5,000 UNIT/ML VIAL 5000 UNIT SUBCUT ×2 (04:31→16:34)
[2020-08-06] MEDS: Omeprazole 20 MG CAPSULE.DR PO (05:51)
[2020-08-06 06:52] LABS: Hemoglobin 12.3 g/dl (14.0-18.0); Mean Corpuscular HGB Conc 31.5 g/dl (31.0-36.0); Mean Corpuscular Hemoglobin 29.4 pg (27.0-33.0); Mean Corpuscular Volume 93.1 fL (80-98); Mean Platelet Volume 10.8 fL (9.4-12.4); Platelet Count 427 X10*3/uL (160-400); Red Blood Count 4.19 X10*6/uL (4.60-5.80); Red Cell Distribution Width 12.3 % (11.0-16.0); White Blood Count 13.6 X10*3/uL (4.8-10.8)
[2020-08-06 07:25] LABS: Anion Gap 14 (12-20); Blood Urea Nitrogen 21 mg/dL (9-16); Calcium 7.8 mg/dL (8.4-10.2); Carbon Dioxide 27 mmol/L (22-29); Chloride 110 mmol/L (96-108); Creatinine Clr Calc Pharmacy 78.7; Estimated Glomerular Filt Rate > 60; Glucose Random 143 mg/dL (60-115); Potassium 3.7 mmol/l (3.3-5.1); Sodium 147 mmol/L (135-145)
[2020-08-06] MEDS: dexAMETHasone sod phosphate 4 MG/ML VIAL 6 MG IVPUSH (07:30)
[2020-08-06] MEDS: Divalproex Sodium Sprinkles 125 MG CAP.DR.SPR 250 MG PO ×2 (07:31→20:51)
[2020-08-06] MEDS: LORazepam 0.5 MG TABLET PO (07:31)
[2020-08-06] MEDS: Gabapentin 600 MG TABLET PO (07:31)
[2020-08-06] MEDS: Memantine HCl 10 MG TABLET PO ×2 (07:31→20:51)
[2020-08-06] MEDS: Dextrose 5 % 1,000 ML 100 ML IVCONT (07:32)
[2020-08-06] MEDS: Fluticasone/Vilanterol 100/25 BLST.W.DEV 1 PUFF INHALE (07:58)
--- NOTE | 2020-08-06 15:37 | P.PNIM_ITS ---
Subjective Subjective Date of Service: 08/06/20 Interval History: seen and examined not eating much per RN report, but less agitated this AM ROS unreliable Physical Exam Vital Signs: Vital Signs: Last Vital Signs Temp 97.6 F 08/06/20 12:00 Pulse 82 08/06/20 12:00 Resp 16 08/06/20 12:00 BP 141/59 H 08/06/20 12:00 Pulse Ox 95 08/06/20 12:00 Body Mass Index 24.5 Const: Other: General - no distress Cardiovascular - regular rate and rhythm, S1-S2 Lungs - normal respiratory effort, clear to auscultation bilaterally, no wheezing Abdomen - soft, nontender, no rebound or guarding Extremities - no edema bilaterally Neuro - non-focal Objective Data Current Medications Generic Name Dose Route Start Last Admin Trade Name Freq PRN Reason Stop Dose Admin Acetaminophen 650 mg 08/04/20 13:58 Acetaminophen 325 Mg Tablet PO Q6H PRN Pain, Mild (Pain Scale 1-3) Dexamethasone Sodium Phosphate 6 mg 08/04/20 15:15 08/06/20 07:30 Dexamethasone Sod Phosphate 4 Mg/Ml Vial IVPUSH 08/13/20 09:01 6 mg DAILY NIDHI Administration Divalproex Sodium 250 mg 08/04/20 21:00 08/06/20 07:31 Divalproex Sodium Sprinkles 125 Mg Cap.Spr PO 250 mg BID NIDHI Administration Fluticasone/Vilanterol 1 puff 08/05/20 08:00 08/06/20 07:58 Fluticasone/Vilanterol 100/25 Blst.W.Dev INHALE 1 puff RDAILY [facility] Administration Gabapentin 600 mg 08/05/20 09:00 08/06/20 07:31 Gabapentin 600 Mg Tablet PO 600 mg DAILY NIDHI Administration Heparin Sodium (Porcine) 5,000 unit 08/04/20 14:00 08/06/20 04:31 Heparin Sodium,Porcine 5,000 Unit/Ml Vial SUBCUT 5,000 unit Q12H NIDHI Administration Dextrose 1,000 mls @ 100 mls/hr 08/04/20 13:45 08/06/20 07:32 D5w IVCONT 100 mls/hr .Q10H NIDHI Administration Latanoprost 1 drop 08/04/20 17:00 08/05/20 15:41 Latanoprost 0.005 % Ophth Tisha 2.5 Ml Drops EYE-BOTH 1 drop DAILY@1700 NIDHI Administration Levothyroxine Sodium 50 mcg 08/04/20 21:00 08/05/20 22:52 Levothyroxine Sodium 50 Mcg Tablet PO 50 mcg BEDTIME N[facility]HI Administration Lorazepam 0.5 mg 08/04/20 13:58 08/06/20 07:31 Lorazepam 0.5 Mg Tablet PO 0.5 mg BID PRN Administration Anxiety Melatonin 3 mg 08/04/20 13:58 Melatonin 3 Mg Tablet PO BEDTIME PRN Insomnia Memantine 10 mg 08/04/20 21:00 08/06/20 07:31 Memantine Hcl 10 Mg Tablet PO 10 mg BID NIDHI Administration Mirtazapine 15 mg 08/04/20 21:00 08/05/20 22:52 Mirtazapine 15 Mg Tablet PO 15 mg BEDTIME NIDHI Administration Morphine Sulfate 2 mg 08/05/20 16:01 Morphine Sulfate 2 Mg/Ml Cartridge IVPUSH Q4H PRN pain/respiratory distress Non-Formulary Medication 1 puff 08/04/20 13:58 Levalbuterol Tartrate INHALE Q6H [facility] Omeprazole 20 mg 08/05/20 06:30 08/06/20 05:51 Omeprazole 20 Mg Capsule. PO 20 mg DAILY@0630 [facility] Administration Ondansetron HCl 4 mg 08/04/20 13:58 Ondansetron Hcl 4 Mg/2 Ml Vial IVPUSH Q8H PRN Nausea and Vomiting Pharmacy Consult 1 each 08/04/20 09:44 Consult Rx Perform Med Rec MISCELLANE ONCE PRN Consult order Polyethylene Glycol 17 gm 08/04/20 14:57 Polyethylene Glycol 3350 17 Gm Powd.Pack PO DAILY PRN Constipation Sodium Chloride 3 ml 08/04/20 16:00 08/06/20 07:31 0.9 % Sodium Chloride Flush 3 Ml Syringe IVFLUSH Not Given QSHIFT [facility] Trazodone HCl 50 mg 08/04/20 13:58 Trazodone Hcl 50 Mg Tablet PO BEDTIME PRN Insomnia Labs CBC & Chem 7: 08/06/20 05:40 08/06/20 05:40 Microbiology Microbiology Results: Microbiology 08/04/20 15:52 Blood - Venous Blood Culture - Preliminary No growth after 24 hours. 08/04/20 15:52 Blood - Venous Blood Culture - Preliminary No growth after 24 hours. Assessment and Plan (1) COVID-19: Status: Acute Assessment and Plan: This is a 75 yo M with advanced dementia who is admitted for worsening confusion, fevers. 1. COVID 19/aspiration leading to acute toxic/metabolic encephalopathy iv decadron ID input appreciated -- stop aspiration Rx (just completed this recently) no hypoxia 2. HyperNa improving down to 147 this AM recheck SNa now and titrate D5W due to poor oral intake appreciate nephrology input 3. Advanced Dementia with behavioral disturbances slightly better today redirect as much as possible 4. Hypothyroidsm synthroid continue the remainder of his meds DNR/DNI D/w his at again today and informed her that my recommendation for him would be to transition to hospice in the near future. She has elected to continue the current treatment and get him back to SNF, at which point she will transition him to hospice.
[2020-08-06 16:45] LABS: Anion Gap 12 (12-20); Blood Urea Nitrogen 20 mg/dL (9-16); Calcium 7.8 mg/dL (8.4-10.2); Carbon Dioxide 28 mmol/L (22-29); Chloride 106 mmol/L (96-108); Creatinine Clr Calc Pharmacy 78.7; Estimated Glomerular Filt Rate > 60; Glucose Random 191 mg/dL (60-115); Potassium 4.4 mmol/l (3.3-5.1); Sodium 142 mmol/L (135-145)
[2020-08-06] MEDS: Latanoprost 0.005 % Ophth Sol 2.5 ML DROPS 1 DROP EYE-BOTH (18:51)
--- NOTE | 2020-08-06 19:01 | PM.PNNEP ---
Subjective Subjective Date of Service: 08/06/20 Principal diagnosis: hyperna Interval history: seen and examined. events noted Physical Exam Vital Signs: Vital Signs: Last Vital Signs Temp 98.1 F 08/06/20 15:47 Pulse 91 08/06/20 15:47 Resp 20 08/06/20 15:47 BP 139/82 08/06/20 15:47 Pulse Ox 93 08/06/20 15:47 Body Mass Index 24.5 Const: General: cooperative HENMT: Head: Yes normal to inspection Mouth: Normal oral and palatal mucosa present Resp: Effort & Inspection: normal respiratory effort Cardio: Rate: regular rate Rhythm: regular rhythm GI: Inspection: Yes normal to inspection Palpation (GI): nontender : General: Yes no CVA tenderness Back/Spine/Pelvis: Back: no CVA tenderness Skin: General skin exam: no rashes or lesions noted Assessment & Plan Assessment and plan (1) COVID-19: Status: Acute Assessment and Plan: Would stop Unasyn Agree with Dexamethasone for 10 days IV then po He has very limited oxygen needs,will follow (2) Sepsis with acute hypoxic respiratory failure: Status: Acute Assessment and Plan: hyperna; resolved call PRN Time Spent With Patient Time: Total time spent is greater than 50% in coordination of care (as documented) at patient's floor/unit and/or counseling patient:
[2020-08-06] MEDS: Mirtazapine 15 MG TABLET PO (20:51)
[2020-08-06] MEDS: Levothyroxine Sodium 50 MCG TABLET PO (20:51)
[2020-08-06] MEDS: 0.9 % Sodium Chloride Flush 3 ML SYRINGE IVFLUSH (23:50)
[2020-08-07] VITALS (7 sets, daily range): BP systolic 106–185; BP diastolic 52–80; PULSE 62–94; RESP 16–19; TEMP 36.1–37.1; O2SAT 90–95
[2020-08-07] MEDS: Heparin Sodium,Porcine 5,000 UNIT/ML VIAL 5000 UNIT SUBCUT ×2 (03:53→15:48)
[2020-08-07] MEDS: dexAMETHasone sod phosphate 4 MG/ML VIAL 6 MG IVPUSH (09:04)
[2020-08-07] MEDS: Divalproex Sodium Sprinkles 125 MG CAP.DR.SPR 250 MG PO ×2 (09:04→20:55)
[2020-08-07] MEDS: Gabapentin 600 MG TABLET PO (09:04)
[2020-08-07] MEDS: 0.9 % Sodium Chloride Flush 3 ML SYRINGE IVFLUSH ×2 (09:04→15:49)
[2020-08-07] MEDS: Memantine HCl 10 MG TABLET PO ×2 (09:04→20:55)
[2020-08-07 10:02] LABS: Anion Gap 12 (12-20); Blood Urea Nitrogen 16 mg/dL (9-16); Calcium 7.9 mg/dL (8.4-10.2); Carbon Dioxide 29 mmol/L (22-29); Chloride 107 mmol/L (96-108); Creatinine Clr Calc Pharmacy 90.9; Estimated Glomerular Filt Rate > 60; Glucose Random 95 mg/dL (60-115); Potassium 3.4 mmol/l (3.3-5.1); Sodium 145 mmol/L (135-145)
--- NOTE | 2020-08-07 10:20 | MHC.CM.PN ---
Case management received a message that [facility] ([facility] may have a bed opening for this pt. CM sent clinical updates via [employer] and requested confirmation of bed availability at 10:20 hours.
--- NOTE | 2020-08-07 13:29 | MHC.CM.PN ---
SAGRARIO spoke to pts , Georgina ([phone]) and explained that neither [facility] or [facility] were able to take the pt back at this time. She reports she does not want the pt to be placed far away and was hoping he would be able to return to [facility]. She reports she spoke to Rom at [facility] yesterday and he told her the pt could come back on Tuesday. SAGRARIO explained that the liaison was contacted this morning and confirmed they could not take the pt while he was still testing positive for Covid. Georgina reports she did not realize the pt had tested + again. Georgina is agreeable to a referral to [facility] where pt has been before. Referral placed, CM will contact Georgina again once a response is received
--- NOTE | 2020-08-07 14:24 | HO.PM.IMPN ---
Subjective Subjective Date of Service: 08/07/20 Interval History: seen and examined alert but not talking much ROS unreliable Physical Exam Vital Signs: Vital Signs: Last Vital Signs Temp 97.1 F 08/07/20 12:00 Pulse 62 08/07/20 12:00 Resp 18 08/07/20 12:00 BP 121/58 L 08/07/20 12:00 Pulse Ox 92 08/07/20 12:00 Body Mass Index 24.5 Const: Other: General - no distress Cardiovascular - regular rate and rhythm, S1-S2 Lungs - normal respiratory effort, clear to auscultation bilaterally, no wheezing Abdomen - soft, nontender, no rebound or guarding Extremities - no edema bilaterally Neuro - non-focal Objective Data Current Medications Generic Name Dose Route Start Last Admin Trade Name Freq PRN Reason Stop Dose Admin Acetaminophen 650 mg 08/04/20 13:58 Acetaminophen 325 Mg Tablet PO Q6H PRN Pain, Mild (Pain Scale 1-3) Dexamethasone Sodium Phosphate 6 mg 08/04/20 15:15 08/07/20 09:04 Dexamethasone Sod Phosphate 4 Mg/Ml Vial IVPUSH 08/13/20 09:01 6 mg DAILY NIDHI Administration Divalproex Sodium 250 mg 08/04/20 21:00 08/07/20 09:04 Divalproex Sodium Sprinkles 125 Mg Cap.DrSilkeSpr PO 250 mg BID NIDHI Administration Fluticasone/Vilanterol 1 puff 08/05/20 08:00 08/07/20 08:21 Fluticasone/Vilanterol 100/25 Blst.W.Dev INHALE Not Given RDAILY [facility] Gabapentin 600 mg 08/05/20 09:00 08/07/20 09:04 Gabapentin 600 Mg Tablet PO 600 mg DAILY NIDHI Administration Heparin Sodium (Porcine) 5,000 unit 08/04/20 14:00 08/07/20 03:53 Heparin Sodium,Porcine 5,000 Unit/Ml Vial SUBCUT 5,000 unit Q12H NIDHI Administration Latanoprost 1 drop 08/04/20 17:00 08/06/20 18:51 Latanoprost 0.005 % Ophth Tisha 2.5 Ml Drops EYE-BOTH 1 drop DAILY@1700 NIDHI Administration Levothyroxine Sodium 50 mcg 08/04/20 21:00 08/06/20 20:51 Levothyroxine Sodium 50 Mcg Tablet PO 50 mcg BEDTIME NIDHI Administration Lorazepam 0.5 mg 08/04/20 13:58 08/06/20 07:31 Lorazepam 0.5 Mg Tablet PO 0.5 mg BID PRN Administration Anxiety Melatonin 3 mg 08/04/20 13:58 Melatonin 3 Mg Tablet PO BEDTIME PRN Insomnia Memantine 10 mg 08/04/20 21:00 08/07/20 09:04 Memantine Hcl 10 Mg Tablet PO 10 mg BID NIDHI Administration Mirtazapine 15 mg 08/04/20 21:00 08/06/20 20:51 Mirtazapine 15 Mg Tablet PO 15 mg BEDTIME NIDHI Administration Morphine Sulfate 2 mg 08/05/20 16:01 Morphine Sulfate 2 Mg/Ml Cartridge IVPUSH Q4H PRN pain/respiratory distress Non-Formulary Medication 1 puff 08/04/20 13:58 Levalbuterol Tartrate INHALE Q6H NIDHI Omeprazole 20 mg 08/05/20 06:30 08/07/20 05:25 Omeprazole 20 Mg Capsule. PO Not Given DAILY@0630 [facility] Ondansetron HCl 4 mg 08/04/20 13:58 Ondansetron Hcl 4 Mg/2 Ml Vial IVPUSH Q8H PRN Nausea and Vomiting Pharmacy Consult 1 each 08/04/20 09:44 Consult Rx Perform Med Rec MISCELLANE ONCE PRN Consult order Polyethylene Glycol 17 gm 08/04/20 14:57 Polyethylene Glycol 3350 17 Gm Powd.Pack PO DAILY PRN Constipation Sodium Chloride 3 ml 08/04/20 16:00 08/07/20 09:04 0.9 % Sodium Chloride Flush 3 Ml Syringe IVFLUSH 3 ml QSHIFT [facility] Administration Trazodone HCl 50 mg 08/04/20 13:58 Trazodone Hcl 50 Mg Tablet PO BEDTIME PRN Insomnia Labs CBC & Chem 7: 08/06/20 05:40 08/07/20 09:04 Microbiology Microbiology Results: Microbiology 08/04/20 15:52 Blood - Venous Blood Culture - Preliminary No growth after 48 hours. 08/04/20 15:52 Blood - Venous Blood Culture - Preliminary No growth after 48 hours. Assessment and Plan (1) COVID-19: Status: Acute Assessment and Plan: This is a 75 yo M with advanced dementia who is admitted for worsening confusion, fevers. 1. COVID 19/aspiration leading to acute toxic/metabolic encephalopathy iv decadron ID input appreciated -- stop aspiration Rx (just completed this recently) no hypoxia 2. HyperNa resolved continue maintenance fluids 3. Advanced Dementia with behavioral disturbances slightly better today redirect as much as possible 4. Hypothyroidsm synthroid continue the remainder of his meds DNR/DNI DVT pptx, lovenox Medically stable for transfer back to SNF when bed available
[2020-08-07] MEDS: Dextrose 5 % and 0.45 % NaCl 1,000 ML 80 ML IVCONT (15:49)
[2020-08-07] MEDS: Levothyroxine Sodium 50 MCG TABLET PO (20:55)
[2020-08-07] MEDS: Mirtazapine 15 MG TABLET PO (20:55)
[2020-08-08] VITALS (8 sets, daily range): BP systolic 117–132; BP diastolic 55–60; PULSE 74–88; RESP 16–20; TEMP 36.4–37.1; O2SAT 93–96
[2020-08-08] MEDS: Heparin Sodium,Porcine 5,000 UNIT/ML VIAL 5000 UNIT SUBCUT ×2 (02:32→14:49)
[2020-08-08] MEDS: Dextrose 5 % and 0.45 % NaCl 1,000 ML 80 ML IVCONT ×2 (04:01→16:37)
[2020-08-08] MEDS: Omeprazole 20 MG CAPSULE.DR PO (06:12)
[2020-08-08 07:27] LABS: Glucose, Whole Blood 122 mg/dL (60-115)
[2020-08-08] MEDS: Fluticasone/Vilanterol 100/25 BLST.W.DEV 1 PUFF INHALE (08:10)
[2020-08-08] MEDS: dexAMETHasone sod phosphate 4 MG/ML VIAL 6 MG IVPUSH (09:06)
[2020-08-08] MEDS: Memantine HCl 10 MG TABLET PO (09:06)
[2020-08-08] MEDS: Divalproex Sodium Sprinkles 125 MG CAP.DR.SPR 250 MG PO (09:06)
[2020-08-08] MEDS: Gabapentin 600 MG TABLET PO (09:07)
[2020-08-08 11:02] LABS: Glucose, Whole Blood 139 mg/dL (60-115)
--- NOTE | 2020-08-08 12:05 | MHC.CM.PN ---
Positive COVID SNF BED SEARCH in progress; multiple referrals have been made.[facility] may have a bed on 08/18/20; CM will continue to follow.
--- NOTE | 2020-08-08 13:59 | HO.PM.IMPN ---
Subjective Subjective Date of Service: 08/08/20 Interval History: seen and examined this AM not eating much Physical Exam Vital Signs: Vital Signs: Last Vital Signs Temp 97.7 F 08/08/20 08:51 Pulse 88 08/08/20 08:51 Resp 18 08/08/20 08:51 BP 126/60 08/08/20 08:51 Pulse Ox 94 08/08/20 08:51 Body Mass Index 24.5 General - no acute distress, appears comfortable Cardiovascular - regular rate and rhythm, S1-S2 Lungs - normal respiratory effort, clear to auscultation bilaterally, no wheezing Abdomen - soft, nontender, no rebound or guarding Extremities - no edema bilaterally Neuro - awake and alert, no focal deficits Objective Data Current Medications Generic Name Dose Route Start Last Admin Trade Name Freq PRN Reason Stop Dose Admin Acetaminophen 650 mg 08/04/20 13:58 Acetaminophen 325 Mg Tablet PO Q6H PRN Pain, Mild (Pain Scale 1-3) Dexamethasone Sodium Phosphate 6 mg 08/04/20 15:15 08/08/20 09:06 Dexamethasone Sod Phosphate 4 Mg/Ml Vial IVPUSH 08/13/20 09:01 6 mg DAILY NIDHI Administration Divalproex Sodium 250 mg 08/04/20 21:00 08/08/20 09:06 Divalproex Sodium Sprinkles 125 Mg Cap.DrSilkeSpr PO 250 mg BID NIDHI Administration Fluticasone/Vilanterol 1 puff 08/05/20 08:00 08/08/20 08:10 Fluticasone/Vilanterol 100/25 Blst.W.Dev INHALE 1 puff RDAILY NIDHI Administration Gabapentin 600 mg 08/05/20 09:00 08/08/20 09:07 Gabapentin 600 Mg Tablet PO 600 mg DAILY NIDHI Administration Heparin Sodium (Porcine) 5,000 unit 08/04/20 14:00 08/08/20 02:32 Heparin Sodium,Porcine 5,000 Unit/Ml Vial SUBCUT 5,000 unit Q12H NIDHI Administration Dextrose/Sodium Chloride 1,000 mls @ 80 mls/hr 08/07/20 14:30 08/08/20 04:01 D51/2ns IVCONT 80 mls/hr .[id number] NIDHI Administration Latanoprost 1 drop 08/04/20 17:00 08/07/20 15:58 Latanoprost 0.005 % Ophth Tisha 2.5 Ml Drops EYE-BOTH Not Given DAILY@1700 [facility] Levothyroxine Sodium 50 mcg 08/04/20 21:00 08/07/20 20:55 Levothyroxine Sodium 50 Mcg Tablet PO 50 mcg BEDTIME NIDHI Administration Lorazepam 0.5 mg 08/04/20 13:58 08/06/20 07:31 Lorazepam 0.5 Mg Tablet PO 0.5 mg BID PRN Administration Anxiety Melatonin 3 mg 08/04/20 13:58 Melatonin 3 Mg Tablet PO BEDTIME PRN Insomnia Memantine 10 mg 08/04/20 21:00 08/08/20 09:06 Memantine Hcl 10 Mg Tablet PO 10 mg BID NIDHI Administration Mirtazapine 15 mg 08/04/20 21:00 08/07/20 20:55 Mirtazapine 15 Mg Tablet PO 15 mg BEDTIME NIDHI Administration Morphine Sulfate 2 mg 08/05/20 16:01 Morphine Sulfate 2 Mg/Ml Cartridge IVPUSH Q4H PRN pain/respiratory distress Non-Formulary Medication 1 puff 08/04/20 13:58 Levalbuterol Tartrate INHALE Q6H [facility] Omeprazole 20 mg 08/05/20 06:30 08/08/20 06:12 Omeprazole 20 Mg Capsule. PO 20 mg DAILY@0630 [facility] Administration Ondansetron HCl 4 mg 08/04/20 13:58 Ondansetron Hcl 4 Mg/2 Ml Vial IVPUSH Q8H PRN Nausea and Vomiting Pharmacy Consult 1 each 08/04/20 09:44 Consult Rx Perform Med Rec MISCELLANE ONCE PRN Consult order Polyethylene Glycol 17 gm 08/04/20 14:57 Polyethylene Glycol 3350 17 Gm Powd.Pack PO DAILY PRN Constipation Sodium Chloride 3 ml 08/04/20 16:00 08/08/20 09:06 0.9 % Sodium Chloride Flush 3 Ml Syringe IVFLUSH Not Given QSHIFT [facility] Trazodone HCl 50 mg 08/04/20 13:58 Trazodone Hcl 50 Mg Tablet PO BEDTIME PRN Insomnia Labs CBC & Chem 7: 08/06/20 05:40 08/07/20 09:04 Microbiology Microbiology Results: Microbiology 08/04/20 15:52 Blood - Venous Blood Culture - Preliminary No growth after 48 hours. 08/04/20 15:52 Blood - Venous Blood Culture - Preliminary No growth after 48 hours. Assessment and Plan (1) COVID-19: Status: Acute Assessment and Plan: This is a 75 yo M with advanced dementia who is admitted for worsening confusion, fevers. 1. COVID 19/aspiration leading to acute toxic/metabolic encephalopathy iv decadron day 01/12 ID input appreciated -- stop aspiration Rx (just completed this recently) no hypoxia 2. HyperNa resolved continue maintenance fluids 3. Advanced Dementia with behavioral disturbances slightly better today redirect as much as possible 4. Hypothyroidsm synthroid continue the remainder of his meds DNR/DNI DVT pptx, lovenox Medically stable for transfer back to SNF when bed available
--- NOTE | 2020-08-08 14:27 | PC.NURSE ---
Pt difficult to give meds crushed in apple sauce. Reattempted and pt took them. Pt had no c/o and able to make needs known. Will continue to monitor
--- NOTE | 2020-08-08 14:47 | MHC.CM.PN ---
[facility] will re-eval Patient on 08/11/20.
[2020-08-09] MEDS: 0.9 % Sodium Chloride Flush 3 ML SYRINGE IVFLUSH ×3 (00:06→15:27)
[2020-08-09] MEDS: Heparin Sodium,Porcine 5,000 UNIT/ML VIAL 5000 UNIT SUBCUT (01:43)
[2020-08-09 02:00] VITALS: BP 112/56; PULSE 62; RESP 20; TEMP 36.1; O2SAT 93
[2020-08-09] MEDS: Dextrose 5 % and 0.45 % NaCl 1,000 ML 80 ML IVCONT (05:39)
[2020-08-09 08:00] VITALS: BP 131/60; PULSE 75; RESP 20; TEMP 36.3; O2SAT 94
[2020-08-09] MEDS: Memantine HCl 10 MG TABLET PO ×2 (08:49→21:49)
[2020-08-09] MEDS: Divalproex Sodium Sprinkles 125 MG CAP.DR.SPR 250 MG PO ×2 (08:49→21:49)
[2020-08-09] MEDS: dexAMETHasone sod phosphate 4 MG/ML VIAL 6 MG IVPUSH (08:49)
[2020-08-09] MEDS: Gabapentin 600 MG TABLET PO (08:49)
[2020-08-09] MEDS: Omeprazole 20 MG CAPSULE.DR PO (08:50)
[2020-08-09 12:00] VITALS: BP 109/54; PULSE 82; RESP 22; TEMP 36.5; O2SAT 94
--- NOTE | 2020-08-09 14:23 | HO.PM.IMPN ---
Subjective Subjective Date of Service: 08/09/20 Interval History: seen and examined this AM tells me hes hungry today Physical Exam Vital Signs: Vital Signs: Last Vital Signs Temp 97.7 F 08/09/20 12:00 Pulse 82 08/09/20 12:00 Resp 22 H 08/09/20 12:00 BP 109/54 L 08/09/20 12:00 Pulse Ox 94 08/09/20 12:00 Body Mass Index 24.5 Const: Other: General - no distress Cardiovascular - regular rate and rhythm, S1-S2 Lungs - normal respiratory effort, clear to auscultation bilaterally, no wheezing Abdomen - soft, nontender, no rebound or guarding Extremities - no edema bilaterally Neuro - non-focal Objective Data Current Medications Generic Name Dose Route Start Last Admin Trade Name Freq PRN Reason Stop Dose Admin Acetaminophen 650 mg 08/04/20 13:58 Acetaminophen 325 Mg Tablet PO Q6H PRN Pain, Mild (Pain Scale 1-3) Dexamethasone Sodium Phosphate 6 mg 08/04/20 15:15 08/09/20 08:49 Dexamethasone Sod Phosphate 4 Mg/Ml Vial IVPUSH 08/13/20 09:01 6 mg DAILY NIDHI Administration Divalproex Sodium 250 mg 08/04/20 21:00 08/09/20 08:49 Divalproex Sodium Sprinkles 125 Mg Cap.DrSilkeSpr PO 250 mg BID NIDHI Administration Fluticasone/Vilanterol 1 puff 08/05/20 08:00 08/09/20 07:59 Fluticasone/Vilanterol 100/25 Blst.W.Dev INHALE Not Given RDAILY [facility] Gabapentin 600 mg 08/05/20 09:00 08/09/20 08:49 Gabapentin 600 Mg Tablet PO 600 mg DAILY NIDHI Administration Heparin Sodium (Porcine) 5,000 unit 08/04/20 14:00 08/09/20 01:43 Heparin Sodium,Porcine 5,000 Unit/Ml Vial SUBCUT 5,000 unit Q12H N[facility]HI Administration Latanoprost 1 drop 08/04/20 17:00 08/08/20 17:55 Latanoprost 0.005 % Ophth Tisha 2.5 Ml Drops EYE-BOTH Not Given DAILY@1700 [facility] Levothyroxine Sodium 50 mcg 08/04/20 21:00 08/08/20 23:04 Levothyroxine Sodium 50 Mcg Tablet PO Not Given BEDTIME NIDHI Melatonin 3 mg 08/04/20 13:58 Melatonin 3 Mg Tablet PO BEDTIME PRN Insomnia Memantine 10 mg 08/04/20 21:00 08/09/20 08:49 Memantine Hcl 10 Mg Tablet PO 10 mg BID NIDHI Administration Mirtazapine 15 mg 08/04/20 21:00 08/08/20 23:04 Mirtazapine 15 Mg Tablet PO Not Given BEDTIME NIDHI Morphine Sulfate 2 mg 08/05/20 16:01 Morphine Sulfate 2 Mg/Ml Cartridge IVPUSH Q4H PRN pain/respiratory distress Non-Formulary Medication 1 puff 08/04/20 13:58 Levalbuterol Tartrate INHALE Q6H [facility] Omeprazole 20 mg 08/05/20 06:30 08/09/20 08:50 Omeprazole 20 Mg Capsule. PO 20 mg DAILY@0630 [facility] Administration Ondansetron HCl 4 mg 08/04/20 13:58 Ondansetron Hcl 4 Mg/2 Ml Vial IVPUSH Q8H PRN Nausea and Vomiting Pharmacy Consult 1 each 08/04/20 09:44 Consult Rx Perform Med Rec MISCELLANE ONCE PRN Consult order Polyethylene Glycol 17 gm 08/04/20 14:57 Polyethylene Glycol 3350 17 Gm Powd.Pack PO DAILY PRN Constipation Sodium Chloride 3 ml 08/04/20 16:00 08/09/20 08:50 0.9 % Sodium Chloride Flush 3 Ml Syringe IVFLUSH 3 ml QSHIFT [facility] Administration Trazodone HCl 50 mg 08/04/20 13:58 Trazodone Hcl 50 Mg Tablet PO BEDTIME PRN Insomnia Labs CBC & Chem 7: 08/06/20 05:40 08/07/20 09:04 Microbiology Microbiology Results: Microbiology 08/04/20 15:52 Blood - Venous Blood Culture - Preliminary No growth after 48 hours. 08/04/20 15:52 Blood - Venous Blood Culture - Preliminary No growth after 48 hours. Assessment and Plan (1) COVID-19: Status: Acute Assessment and Plan: This is a 75 yo M with advanced dementia who is admitted for worsening confusion, fevers. 1. COVID 19/aspiration leading to acute toxic/metabolic encephalopathy iv decadron day 02/12, po upon d/c ID input appreciated -- stop aspiration Rx (just completed this recently) no hypoxia 2. HyperNa resolved continue maintenance fluids 3. Advanced Dementia with behavioral disturbances slightly better today redirect as much as possible 4. Hypothyroidsm synthroid continue the remainder of his meds DNR/DNI DVT pptx, lovenox Medically stable for transfer back to SNF when bed available . wants to transition him to hospice upon transfer
[2020-08-09 15:36] VITALS: BP 118/91; PULSE 98; RESP 18; TEMP 36.2; O2SAT 91
[2020-08-09] MEDS: Latanoprost 0.005 % Ophth Sol 2.5 ML DROPS 1 DROP EYE-BOTH (17:50)
[2020-08-09 19:10] VITALS: BP 125/60; PULSE 92; RESP 18; TEMP 36.9; O2SAT 97
[2020-08-09] MEDS: Mirtazapine 15 MG TABLET PO (21:49)
[2020-08-09] MEDS: Levothyroxine Sodium 50 MCG TABLET PO (21:49)
[2020-08-09 23:58] VITALS: BP 148/76; PULSE 78; RESP 20; TEMP 37; O2SAT 98
[2020-08-10] MEDS: 0.9 % Sodium Chloride Flush 3 ML SYRINGE IVFLUSH ×4 (00:14→20:36)
[2020-08-10] MEDS: Heparin Sodium,Porcine 5,000 UNIT/ML VIAL 5000 UNIT SUBCUT ×2 (01:26→13:03)
[2020-08-10] MEDS: Morphine Sulfate 2 MG/ML CARTRIDGE IVPUSH (02:03)
[2020-08-10 04:00] VITALS: BP 148/65; PULSE 88; RESP 18; TEMP 37; O2SAT 98
[2020-08-10] MEDS: Fluticasone/Vilanterol 100/25 BLST.W.DEV 1 PUFF INHALE (07:30)
[2020-08-10 08:00] VITALS: BP 133/54; PULSE 90; RESP 20; TEMP 36.4; O2SAT 94
--- NOTE | 2020-08-10 10:11 | HO.PM.IMPN ---
Subjective Subjective Date of Service: 08/10/20 Interval History: seen and examined this AM no new issues appears at [facility] ROS denies sob, chest pain not hungry Physical Exam Vital Signs: Vital Signs: Last Vital Signs Temp 97.6 F 08/10/20 08:00 Pulse 90 08/10/20 08:00 Resp 20 08/10/20 08:00 BP 133/54 L 08/10/20 08:00 Pulse Ox 94 08/10/20 08:00 Body Mass Index 24.5 Const: Other: General - no distress Cardiovascular - regular rate and rhythm, S1-S2 Lungs - normal respiratory effort, clear to auscultation bilaterally, no wheezing Abdomen - soft, nontender, no rebound or guarding Extremities - no edema bilaterally Neuro - non-focal Objective Data Current Medications Generic Name Dose Route Start Last Admin Trade Name Freq PRN Reason Stop Dose Admin Acetaminophen 650 mg 08/04/20 13:58 Acetaminophen 325 Mg Tablet PO Q6H PRN Pain, Mild (Pain Scale 1-3) Dexamethasone Sodium Phosphate 6 mg 08/04/20 15:15 08/09/20 08:49 Dexamethasone Sod Phosphate 4 Mg/Ml Vial IVPUSH 08/13/20 09:01 6 mg DAILY NIDHI Administration Divalproex Sodium 250 mg 08/04/20 21:00 08/09/20 21:49 Divalproex Sodium Sprinkles 125 Mg Cap.DrSilkeSpr PO 250 mg BID NIDHI Administration Fluticasone/Vilanterol 1 puff 08/05/20 08:00 08/10/20 07:30 Fluticasone/Vilanterol 100/25 Blst.W.Dev INHALE 1 puff RDAILY NIDHI Administration Gabapentin 600 mg 08/05/20 09:00 08/09/20 08:49 Gabapentin 600 Mg Tablet PO 600 mg DAILY NIDHI Administration Heparin Sodium (Porcine) 5,000 unit 08/04/20 14:00 08/10/20 01:26 Heparin Sodium,Porcine 5,000 Unit/Ml Vial SUBCUT 5,000 unit Q12H NIDHI Administration Latanoprost 1 drop 08/04/20 17:00 08/09/20 17:50 Latanoprost 0.005 % Ophth Tisha 2.5 Ml Drops EYE-BOTH 1 drop DAILY@1700 NIDHI Administration Levothyroxine Sodium 50 mcg 08/04/20 21:00 08/09/20 21:49 Levothyroxine Sodium 50 Mcg Tablet PO 50 mcg BEDTIME NIDHI Administration Melatonin 3 mg 08/04/20 13:58 Melatonin 3 Mg Tablet PO BEDTIME PRN Insomnia Memantine 10 mg 08/04/20 21:00 08/09/20 21:49 Memantine Hcl 10 Mg Tablet PO 10 mg BID NIDHI Administration Mirtazapine 15 mg 08/04/20 21:00 08/09/20 21:49 Mirtazapine 15 Mg Tablet PO 15 mg BEDTIME NIDHI Administration Morphine Sulfate 2 mg 08/05/20 16:01 08/10/20 02:03 Morphine Sulfate 2 Mg/Ml Cartridge IVPUSH 2 mg Q4H PRN Administration pain/respiratory distress Non-Formulary Medication 1 puff 08/04/20 13:58 Levalbuterol Tartrate INHALE Q6H NIDHI Omeprazole 20 mg 08/05/20 06:30 08/09/20 08:50 Omeprazole 20 Mg Capsule.Dr PO 20 mg DAILY@0630 NIDHI Administration Ondansetron HCl 4 mg 08/04/20 13:58 Ondansetron Hcl 4 Mg/2 Ml Vial IVPUSH Q8H PRN Nausea and Vomiting Pharmacy Consult 1 each 08/04/20 09:44 Consult Rx Perform Med Rec MISCELLANE ONCE PRN Consult order Polyethylene Glycol 17 gm 08/04/20 14:57 Polyethylene Glycol 3350 17 Gm Powd.Pack PO DAILY PRN Constipation Sodium Chloride 3 ml 08/04/20 16:00 08/10/20 00:14 0.9 % Sodium Chloride Flush 3 Ml Syringe IVFLUSH 3 ml QSHIFT NIDHI Administration Trazodone HCl 50 mg 08/04/20 13:58 Trazodone Hcl 50 Mg Tablet PO BEDTIME PRN Insomnia Labs CBC & Chem 7: 08/06/20 05:40 08/07/20 09:04 Microbiology Microbiology Results: Microbiology 08/04/20 15:52 Blood - Venous Blood Culture - Final No growth after 5 days. 08/04/20 15:52 Blood - Venous Blood Culture - Final No growth after 5 days. Assessment and Plan (1) COVID-19: Status: Acute Assessment and Plan: This is a 75 yo M with advanced dementia who is admitted for worsening confusion, fevers. 1. COVID 19/aspiration leading to acute toxic/metabolic encephalopathy iv decadron day 03/14, po upon d/c ID input appreciated -- stop aspiration Rx (just completed this recently) no hypoxia 2. HyperNa resolved 3. Advanced Dementia with behavioral disturbances slightly better today redirect as much as possible 4. Hypothyroidsm synthroid continue the remainder of his meds DNR/DNI DVT pptx, reglax Remains medically stable for transfer back to SNF when bed available . wants to transition him to hospice upon transfer to SNF
[2020-08-10] MEDS: Memantine HCl 10 MG TABLET PO ×2 (10:33→20:35)
[2020-08-10] MEDS: Divalproex Sodium Sprinkles 125 MG CAP.DR.SPR 250 MG PO ×2 (10:33→20:35)
[2020-08-10] MEDS: Omeprazole 20 MG CAPSULE.DR PO (10:33)
[2020-08-10] MEDS: dexAMETHasone sod phosphate 4 MG/ML VIAL 6 MG IVPUSH (10:33)
[2020-08-10] MEDS: Gabapentin 600 MG TABLET PO (10:33)
[2020-08-10 11:50] VITALS: BP 114/58; PULSE 86; RESP 20; TEMP 37; O2SAT 99
[2020-08-10 16:00] VITALS: BP 99/57; PULSE 83; RESP 18; TEMP 36.9; O2SAT 93
[2020-08-10 19:32] VITALS: BP 112/62; PULSE 90; RESP 18; TEMP 36.8; O2SAT 95
[2020-08-10] MEDS: Levothyroxine Sodium 50 MCG TABLET PO (20:35)
[2020-08-10] MEDS: Mirtazapine 15 MG TABLET PO (20:35)
[2020-08-11] VITALS: BP 127/61; PULSE 84; RESP 18; TEMP 36.3; O2SAT 92
[2020-08-11] MEDS: Heparin Sodium,Porcine 5,000 UNIT/ML VIAL 5000 UNIT SUBCUT (01:51)
[2020-08-11 04:00] VITALS: BP 128/62; PULSE 80; RESP 18; TEMP 36.7; O2SAT 95
[2020-08-11] MEDS: Omeprazole 20 MG CAPSULE.DR PO (06:04)
--- NOTE | 2020-08-11 06:33 | PC.NURSE ---
UNABLE TO OBTAIN IV ACCESS ON PT. PT PULLED OUT #[id number] FROM [facility] YESTERDAY AFTEERNO[facility]. SEVERAL ATTEMPTS MADE BY 2 SEPARATE RNS WITHOUT SUCCESS. WILL REPORT TO DAY SHIFT.
[2020-08-11] MEDS: Fluticasone/Vilanterol 100/25 BLST.W.DEV 1 PUFF INHALE (07:15)
[2020-08-11 08:00] VITALS: BP 112/58; PULSE 84; RESP 18; TEMP 36.2; O2SAT 92
[2020-08-11] MEDS: Divalproex Sodium Sprinkles 125 MG CAP.DR.SPR 250 MG PO (09:23)
[2020-08-11] MEDS: Gabapentin 600 MG TABLET PO (09:23)
[2020-08-11] MEDS: 0.9 % Sodium Chloride Flush 3 ML SYRINGE IVFLUSH (09:24)
[2020-08-11] MEDS: dexAMETHasone sod phosphate 4 MG/ML VIAL 6 MG IVPUSH (09:25)
--- NOTE | 2020-08-11 11:45 | MHC.CM.PN ---
[facility] REPORTS THEY ARE ABLE TO TAKE PT BACK TODAY IF HE IS NO LONGER REQUIRING ANY IV MEDICATIONS. SAGRARIO CONFIRMED WITH MD THAT ALL MEDS WILL BE PO AND [facility] INDICATED THEY COULD TAKE PT AT 1400 HOURS. SAGRARIO CONTACTED PTS , SLAVA ([phone]) WHO WAS PLEASED THAT PT COULD RETURN TO SNF. SHE REQUESTED CM SEND A REFERRAL TO [facility] PRIOR TO DC SO THAT THEY COULD ASSESS THE PT FOR SERVICES ONCE HE IS AT THE SNF. REFERRAL SENT AND TRANSPORT BOOKED FOR 1400 HOURS VIA [facility]
[2020-08-11 12:00] VITALS: BP 129/61; PULSE 80; RESP 18; TEMP 36.1; O2SAT 97
[2020-08-11] MEDS: Memantine HCl 10 MG TABLET PO (12:06)
--- NOTE | 2020-08-11 12:39 | PM.DS ---
DS: Providers Provider Date of admission: 08/04/20 12:21 Primary care physician: Harley Hughes MD Consults: 08/04/20 13:58 Consult to Infectious Diseases Routine Consulting Provider: Nicole Barrett Reason for consultation: covid 19 Has provider been notified: No Consult to Nephrology Routine Consulting Provider: Karlos Brandon Reason for consultation: hypernatremia Has provider been notified: No DS: Diagnosis Discharge Diagnosis (1) COVID-19: Status: Acute DS: Medications Discharge Medications Home Medications: Home Medications Medication Instructions Recorded Confirmed divalproex [Depakote Sprinkles] 250 mg PO BID 08/04/20 08/04/20 fluticasone propion-salmeterol 1 inh INHALATION BID 08/04/20 08/04/20 [Advair Diskus] gabapentin 600 mg PO DAILY 08/04/20 08/04/20 latanoprost 1 drp OPHTHALMIC (EYE) QPM 08/04/20 08/04/20 levalbuterol tartrate 1 puff INHALATION Q6H 08/04/20 08/04/20 levothyroxine 50 mcg PO BEDTIME 08/04/20 08/04/20 lorazepam 0.5 mg PO BID PRN 08/04/20 08/04/20 melatonin 3 mg PO BEDTIME PRN 08/04/20 08/04/20 memantine [Namenda] 10 mg PO BID 08/04/20 08/04/20 mirtazapine [Remeron] 15 mg PO BEDTIME 08/04/20 08/04/20 omeprazole 20 mg PO DAILY 08/04/20 08/04/20 polyethylene glycol 3350 [Miralax] 17 g PO DAILY PRN 08/04/20 08/04/20 trazodone 50 mg PO BEDTIME PRN 08/04/20 08/04/20 DS: Summary Hospital Course Hospital Course: patient was admitted for COVID-19 pneumonia complicated by aspiration and metabolic encephalopathy due to hypernatremia. He was given steroids and hypoxia resolved. He was also given antibiotics for aspiration and completed course. For his hypernatremia received hypotonic fluids and that resolved as well. He was seen by speech therapy who recommended puree solids and honey thick liquids to prevent further aspiration. The risks of aspiration should be measured against the risks of repeated encephalopathy with hypernatremia. If patient is unable to get adequate free fluid intake with honey thick liquids and does not grossly coughing with thin water then would allow thin water. Patient is doing much better will be discharged to long term facility with plans to transition to hospice care. Time Spent with Patient Time attestation: Total time spent providing and/or coordinating discharge services: Physical Exam Vital Signs: Vital Signs: Last Vital Signs Temp 97.2 F 08/11/20 08:00 Pulse 84 08/11/20 08:00 Resp 18 08/11/20 08:00 BP 112/58 L 08/11/20 08:00 Pulse Ox 92 08/11/20 08:00 Body Mass Index 24.5 General: Alert, minimally verbal, confused, no acute distress Resp: CTA bilateral CVS: S1,S2,RRR GI: soft, non tender, non distended Neuro: motor grossly intact Psych: impaired insight DS: Data Data Completed and Pending Labs on day of discharge: 08/04/20 CT chest wo con Stat 08/04/20 05:43 Basic Metabolic Panel Stat C Reactive Protein Stat Complete Blood Count Auto Diff Stat Ferritin Stat Lactate Dehydrogenase Stat 08/04/20 05:47 Acetaminophen [Tylenol] 975 mg PO ONCE ONE 08/04/20 06:24 Acetaminophen [Tylenol] 650 mg GA ONCE ONE 08/04/20 12:07 Transfer Order Routine 08/04/20 13:37 Add Laboratory Test Routine 08/04/20 13:45 Dextrose 5 % [D5w] 1,000 ml IVCONT 100 mls/hr 08/04/20 13:58 LORazepam [Ativan] 0.5 mg PO BID PRN 08/04/20 13:58 IV insert/maintain Q4HR Intake and Output QSHIFTE Vital Signs Q4HR 08/04/20 14:45 Ampicillin Sodium/Sulbactam Na [Unasyn] 3 gm 0.9 % Sodium Chloride [Ns] 100 ml IV Q6H 08/04/20 15:00 dexAMETHasone sod phosphate [Decadron] 6 mg 0.9 % Sodium Chloride [Ns] 50 ml IV Q24H 08/04/20 Lunch Low Sodium Diet 08/04/20 15:52 Lactic Acid Stat Blood Culture X2 [BC] Stat 08/04/20 15:54 Ampicillin Sodium/Sulbactam Na [Unasyn] 3 gm .ROUTE .STK-MED ONE 08/04/20 18:26 Glucose, Whole Blood Routine 08/04/20 18:48 Basic Metabolic Panel Routine 08/04/20 21:14 Ampicillin Sodium/Sulbactam Na [Unasyn] 3 gm .ROUTE .STK-MED ONE 08/05/20 05:47 Basic Metabolic Panel DAILY@0600 Complete Blood Count Auto Diff DAILY@0600 SLIDE REVIEW Routine 08/05/20 10:50 Morphine Sulfate 2 mg IVPUSH ONCE ONE 08/05/20 12:20 SARS COV2 IgG Routine 08/05/20 15:56 Basic Metabolic Panel Stat 08/05/20 16:01 Morphine Sulfate 2 mg IVPUSH Q4H PRN 08/05/20 16:03 EKG Documentation DIRECTED 08/06/20 05:40 Basic Metabolic Panel DAILY@0600 Complete Blood Count no Diff DAILY@0600 08/06/20 15:48 Basic Metabolic Panel Routine 08/07/20 09:04 Basic Metabolic Panel Routine 08/07/20 14:30 Dextrose 5 % and 0.45 % NaCl [D51/2Ns] 1,000 ml IVCONT 80 mls/hr 08/08/20 07:19 Glucose, Whole Blood Routine 08/08/20 10:54 Glucose, Whole Blood Routine 08/09/20 Breakfast NPO Pending Swallow Eval Diet Laboratory Last Values WBC 13.6 X10*3/uL (4.8-10.8) H 08/06/20 05:40 RBC 4.19 X10*6/uL (4.60-5.80) L 08/06/20 05:40 Hgb 12.3 g/dl (14.0-18.0) L 08/06/20 05:40 Hct 39.0 % (42-52) L 08/06/20 05:40 MCV 93.1 fL (80-98) 08/06/20 05:40 MCH 29.4 pg (27.0-33.0) 08/06/20 05:40 MCHC 31.5 g/dl (31.0-36.0) 08/06/20 05:40 RDW 12.3 % (11.0-16.0) 08/06/20 05:40 Plt Count 427 X10*3/uL (160-400) H 08/06/20 05:40 MPV 10.8 fL (9.4-12.4) 08/06/20 05:40 Immature Gran % (Auto) 0.7 % (0.0-0.4) H 08/05/20 05:47 Neut % (Auto) 88.5 % (45-73) H 08/05/20 05:47 Lymph % (Auto) 6.2 % (20-40) L 08/05/20 05:47 Hemphill % (Auto) 4.6 % (2-11) 08/05/20 05:47 Eos % (Auto) 0.0 % (0-4) 08/05/20 05:47 Baso % (Auto) 0.0 % (0-2) 08/05/20 05:47 Lymph # (Auto) 0.6 X10*3/uL (1.2-4.9) L 08/05/20 05:47 Hemphill # (Auto) 0.5 X10*3/uL (0.1-1.2) 08/05/20 05:47 Eos # (Auto) 0.0 X10*3/uL (0.0-0.4) 08/05/20 05:47 Baso # (Auto) 0.0 X10*3/uL (0.0-0.2) 08/05/20 05:47 Abs Immat Gran (auto) 0.07 X10*3/uL (0.00-0.03) H 08/05/20 05:47 Absolute Neuts (auto) 8.9 X10*3/uL (2.0-8.3) H 08/05/20 05:47 Absolute Nucleated RBC 0.000 X10*3/uL (0.0-0.012) 08/06/20 05:40 Nucleated RBC % (auto) 0.0 /100WBC (0.0-0.2) 08/06/20 05:40 Smear Tech's Comments VERIFIED 08/05/20 05:47 Sodium 145 mmol/L (135-145) 08/07/20 09:04 Potassium 3.4 mmol/l (3.3-5.1) D 08/07/20 09:04 Chloride 107 mmol/L (96-108) 08/07/20 09:04 Carbon Dioxide 29 mmol/L (22-29) 08/07/20 09:04 Anion Gap 12 (12-20) 08/07/20 09:04 BUN 16 mg/dL (9-16) 08/07/20 09:04 Creatinine 0.77 mg/dL (0.5-1.4) 08/07/20 09:04 Estim Creat Clear Calc 90.9 08/07/20 09:04 Estimated GFR > 60 08/07/20 09:04 POC Glucose 139 mg/dL (60-115) H 08/08/20 10:54 Random Glucose 95 mg/dL (60-115) D 08/07/20 09:04 Lactic Acid 1.1 mmol/L (0.5-2.0) 08/04/20 15:52 Calcium 7.9 mg/dL (8.4-10.2) L 08/07/20 09:04 Ferritin 668 ng/mL (20-250) H 08/04/20 05:43 Lactate Dehydrogenase 464 U/L (118-273) H 08/04/20 05:43 C-Reactive Protein 14.82 mg/dL (< or = 0.50) H 08/04/20 05:43 SARS-CoV-2 IgG Ab Positive (Negative) 08/05/20 12:20 Discharge Plan Discharge Patient Disposition: Xfer SNF Referrals: [facility] [Outside] (PT WILL BE ASSESSED FOR HOSPICE SERVICES AT THE CUSTODIAL FACILITY ) [facility] [Outside] Harley Hughes MD [Primary Care Provider] - Discharge Medications: Continued latanoprost 0.005 % Drops 1 drp OPHTHALMIC (EYE) QPM RF: 0 gabapentin 600 mg Tablet 600 mg PO DAILY RF: 0 trazodone 50 mg Tablet 50 mg PO BEDTIME PRN (Reason: Insomnia) RF: 0 melatonin 3 mg Tablet 3 mg PO BEDTIME PRN (Reason: Insomnia) RF: 0 lorazepam 0.5 mg Tablet 0.5 mg PO BID PRN (Reason: Anxiety) RF: 0 levothyroxine 50 mcg Tablet 50 mcg PO BEDTIME RF: 0 omeprazole 20 mg Capsule,Delayed Release(Dr/Ec) 20 mg PO DAILY RF: 0 mirtazapine [Remeron] 15 mg Tablet 15 mg PO BEDTIME RF: 0 fluticasone propion-salmeterol [Advair Diskus] 100-50 mcg/dose Blister With Device 1 inh INHALATION BID RF: 0 polyethylene glycol 3350 [Miralax] 17 gram/dose Powder 17 g PO DAILY PRN (Reason: Constipation) RF: 0 divalproex [Depakote Sprinkles] 125 mg Capsule, Delayed Rel Sprinkle 250 mg PO BID RF: 0 memantine [Namenda] 10 mg Tablet 10 mg PO BID RF: 0 levalbuterol tartrate 45 mcg/actuation Hfa Aerosol Inhaler 1 puff INHALATION Q6H RF: 0 Discontinued amoxicillin-pot clavulanate 875-125 mg Tablet 1 tab PO BID RF: 0 Discharge Orders: Discharge Order (Routine); Ordered 08/11/20 Ordered By: Frank Yanez Diet: other Activity on Discharge: As tolerated Visit Report Forms: Patient Portal Discharge page Care Plan Goals: Comfort Health Concerns: COVID dysphagia Plan of Treatment: pureed diet for solids, ideally honey thick liquids to prevent aspiration, however, if patient is unable to maintain hydration and wishes to drink, and is able to do so without gross aspiration/ symptomatic coughing, okay with thin water
--- NOTE | 2020-08-11 12:58 | MHC.INPTTRAN ---
pt confused, Resistive to care at times. Is on aspiration precautions. Ihomey thick liq and puree solids. crush meds in applesasuc. VSS Weak. Denies pain. Total assist with all ADL's.
--- NOTE | 2020-08-11 13:05 | MHC.CM.PN ---
Due to pts SNF stay being covered by his [facility] insurance, the VA regional sales coordinator must set up his ambulance transport. SAGRARIO called the VA coordinator, Tatum ([phone]) who had more questions and was unable to get her computer boot up. She asked that t/w call her back with the info and she planned to get her computer running in the meantime. SAGRARIO has tried to call back twice since then and the phone continues to ring, no VM available. SAGRARIO will continue to call Tatum, if she continues to be unavailable, CM will contact alternate VA coordinator.
--- NOTE | 2020-08-11 14:25 | MHC.CM.PN ---
SAGRARIO spoke to Tatum ([phone]) at the [employer] transportation maintenance supervisor office at around 1245 hours at which time she indicated she would arrange pts BLS transport for around 1400 hours. pts and unit nurse were notice. Pts contacted SAGRARIO at 1420 wondering if the pt was on his way to the SNF. SAGRARIO contacted [facility] to check the status of pts ambulance and was told there was no referral sent. SAGRARIO called Tatum back who reported she was unable to book the ambulance before 1500 hours and was in a meeting so could not contact t/w. SAGRARIO called pts , Georgina ([phone]) back and provided the above information.
== END 2020-08-11 16:20 | disposition skilled nursing facility (03) | DRG 871 ==
LOC: HO.ED 06:58 → HO.IMC 12:55
PROVIDERS: Nurse Practitioner Acute Care; Admitting Provider Family Medicine; Emergency Provider Student in an Organized Health Care Education/Training Program; PCP Hospitalist; Visit Provider Internal Medicine
DX: A41.89 Other specified sepsis (principal); U07.1 COVID-19; J69.0 Pneumonitis due to inhalation of food and vomit; J96.01 Acute respiratory failure with hypoxia; G92 Toxic encephalopathy; E87.0 Hyperosmolality and hypernatremia; F03.91 Unspecified dementia, unspecified severity, with behavioral disturbance; F05 Delirium due to known physiological condition; E03.9 Hypothyroidism, unspecified; E86.0 Dehydration; F43.10 Post-traumatic stress disorder, unspecified; Z87.891 Personal history of nicotine dependence; Z79.51 Long term (current) use of inhaled steroids; Z79.890 Hormone replacement therapy; Z79.899 Other long term (current) drug therapy; Z66 Do not resuscitate
CPT/HCPCS: 11104; 36415; 71250; 80048; 82728; 82947; 83605; 83615; 85025; 85027; 86140; 86769; 87040; 92610; 99285; J0295; J1100; J2270